=== PATIENT | male | born 1990 | race Caucasian/White ===

== ENCOUNTER 2018-04-06 10:48 | Outpatient (CLI) | payer MEDICAID | END 2018-04-06 10:49 | disposition critical access hospital (66) | LOC: EMS 10:48 | PROVIDERS: ATTEND Surgery | DX: R40.20 Unspecified coma (principal) | CPT/HCPCS: A0425; A0427 ==

== ENCOUNTER 2018-04-06 11:30 | Emergency (ER) | payer MEDICAID ==
--- NOTE | 2018-04-06 11:44 | ED Physician Documentation ---
History of Present Illness - Stated complaint Stated Complaint: DIABETIC PROB. - Chief complaint Chief Complaint: General - Additonal information Additional information: hx from pt 27 y/o male IDDM has insulin pump nl diet, no change in insulin FSBS was 151 at bedtime last night but this AM approx 1015 parents found him unrespnsive with sonorous respirations and his blood sugar was only 41 CPR was started EMS arrived and FSBS was 41 gave an amp of D50 and pt woke up and feels fine except his chest hurts from the compressions also travelled from [place] 2 m ago and his LLE has been a bit swollen ever since - Review of Systems Constitutional: denies: Fever, Chills Cardiac: reports: Chest pain / pressure (s/p CPR not before) Respiratory: denies: Dyspnea, Cough GI: denies: Abdominal Pain, Vomiting, Diarrhea Skin: denies: Rash, Lesions Endocrine: denies: Easy bruising / bleeding Immunocompromised: denies: Immunocompromised PD PAST MEDICAL HISTORY - Past Medical History Past Medical History: Yes Neuro: Peripheral neuropathy Endocrine/Autoimmune: Type 1 diabetes - Past Surgical History Past Surgical History: No - Present Medications Home Medications: Ambulatory Orders Medication Instructions Recorded Confirmed Citalopram [CeleXA] 10 mg PO ONCE 04/06/18 04/06/18 Gabapentin 600 mg PO 04/06/18 Ibuprofen [Motrin] 400 mg PO Q6H #30 tablet 04/06/18 Lidocaine Patch 5% [Lidoderm Patch] 1 patch TOP DAILY PRN #10 patch 04/06/18 - Allergies Allergies/Adverse Reactions: Allergies Allergy/AdvReac Type Severity Reaction Status Date / Time milk AdvReac Cramps Verified 04/06/18 11:36 - Social History Does the pt smoke?: Yes Smoking Status: Current every day smoker Does the pt drink ETOH?: Yes Substance Use and Type: Marijuana - Immunizations Immunizations are current?: Yes PD ED PE NORMAL - Vitals Vital signs reviewed: Yes - General General: Alert and oriented X 3 - HEENT HEENT: PERRL - Neck Neck: Supple, no meningeal sign - Cardiac Cardiac: RRR, Other (chest wall TTP no visible bruising) - Respiratory Respiratory: No respiratory distress, Clear bilaterally - Derm Derm: Normal color - Extremities Extremities: Other (slight edema to LLE non tender no redness or warmth, feet checked and no infection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 Results - Vitals Vitals: Vital Signs - 24 hr 04/06/18 04/06/18 11:31 15:31 Temperature 36.3 C L 36.6 C Heart Rate 118 H 101 H Respiratory 16 16 Rate Blood Pressure 151/109 H 110/104 H O2 Saturation 96 100 Oxygen O2 Source Room air - EKG (time done) 1216 Rate: Rate (enter#) (114) Rhythm: Sinus tachycardia Intervals: Normal MI QRS: Normal Ischemia: ST elevation c/w repol - Labs Labs: Laboratory Tests 04/06/18 04/06/18 04/06/18 12:09 12:09 13:38 WBC 6.8 RBC 5.63 Hgb 14.3 Hct 43.1 MCV 76.4 L MCH 25.5 L MCHC 33.3 RDW 15.5 H Plt Count 287 MPV 6.7 L Neut # (Auto) 5.6 Lymph # (Auto) 0.8 L [place] # (Auto) 0.4 Eos # (Auto) 0.0 Baso # (Auto) 0.0 Absolute Nucleated RBC 0.01 Nucleated RBC % 0.1 Sodium 134 L Potassium 4.5 Chloride 104 Carbon Dioxide 22 Anion Gap 8.0 BUN 22 H Creatinine 1.1 Estimated GFR (MDRD) 81 L Glucose 96 Calcium 8.7 Urine Color YELLOW Urine Clarity CLEAR Urine pH 6.0 Ur Specific [place] 1.025 Urine Protein 100 H Urine Glucose (UA) NEGATIVE Urine Ketones NEGATIVE Urine Occult Blood SMALL H Urine Nitrite NEGATIVE Urine Bilirubin NEGATIVE Urine Urobilinogen 0.2 (NORMAL) Ur Leukocyte Esterase NEGATIVE Urine RBC 0-5 Urine WBC 0-3 Ur Squamous Epith Cells RARE Squamous Urine Bacteria Rare Urine Casts 0-2 Hyaline Casts Ur Microscopic Review INDICATED Urine Culture Comments NOT INDICATED Urine Opiates Screen NEGATIVE Ur Oxycodone Screen NEGATIVE Urine Methadone Screen NEGATIVE Ur Propoxyphene Screen NEGATIVE Ur Barbiturates Screen NEGATIVE Ur Tricyclics Screen NEGATIVE Ur Phencyclidine Scrn NEGATIVE Ur Amphetamine Screen NEGATIVE U Methamphetamines Scrn NEGATIVE U Benzodiazepines Scrn NEGATIVE Urine Cocaine Screen NEGATIVE U Cannabinoids Screen NEGATIVE - Rads (name of study) duplex Radiology: See rad report (no DVT) PD MEDICAL DECISION MAKING - ED course ED course: prob low blood sugar resulting in AMS but consider another etiology causing AMS so he did not wake up and eat per usual better now after D50 favors first option but will check EKG CXR UA MUDDS and doppler LE to be sure no DVT (and thus doubt PE) all work up neg awake alert eating FSBS mid 70s, he turned his pump down pt and family ready to go he is experieneced with his diabetes, will adjust insulin, wants to go home and eat properly Departure - Departure Disposition: Home, Self Care Clinical Impression: Hypoglycemia Condition: Good Instructions: ED Contusion Chest Wall, ED Diabetes Hypoglycemia Insulin React Prescriptions: Ibuprofen [Motrin] 400 mg PO Q6H #30 tablet Lidocaine Patch 5% [Lidoderm Patch] 1 patch TOP DAILY PRN #10 patch PRN Reason: pain Comments: The blood work was fine. The EKG showed a normal rhythm The ultrasound did not show a blood clot The xray did not show any broken ribs or bruised lungs - an official radiology report is still pending and I will call you if the radiologist notes anything important for you to know about. Monitor your blood sugars carefully and adjust insulin as needed Motrin and lidocaine patches as needed for the pain in your chest wall
[2018-04-06 12:13] LABS: BASOPHILS % (AUTO) 0.2 %; EOSINOPHILS % (AUTO) 0.7 %; HGB - HEMOGLOBIN 14.3 g/dL (14.0-18.0); LYMPHOCYTES # (AUTO) 0.8 10^3/uL (1.5-3.5); LYMPHOCYTES % (AUTO) 11.2 %; MEAN CORPUSCULAR HEMOGLOBIN 25.5 pg (27.0-31.0); MEAN CORPUSCULAR HGB CONC 33.3 g/dL (32.0-36.0); MEAN CORPUSCULAR VOLUME 76.4 fL (80.0-94.0); MEAN PLATELET VOLUME 6.7 fL (7.4-11.4); MONOCYTES # (AUTO) 0.4 10^3/uL (0.0-1.0); MONOCYTES % (AUTO) 5.2 %; NEUTROPHILS # (AUTO) 5.6 10^3/uL (1.5-6.6); NEUTROPHILS % (AUTO) 82.7 %; PLT - PLATELET COUNT 287 10^3/uL (130-450); RED BLOOD COUNT 5.63 10^6/uL (4.70-6.10); RED CELL DISTRIBUTION WIDTH 15.5 % (12.0-15.0); WHITE BLOOD COUNT 6.8 x10^3/uL (4.8-10.8)
[2018-04-06 12:24] LABS: CALCIUM 8.7 mg/dL (8.5-10.3); CREATININE 1.1 mg/dL (0.6-1.2)
--- NOTE | 2018-04-06 13:35 | Ultrasound Report ---
Reason: LLE swelling after long distance travel Procedure Date: 04/06/2018 Accession Number: [id number] / [id number] Procedure: US - Duplex Ext Veins Left CPT Code: FULL RESULT: EXAM: LEFT LOWER EXTREMITY VENOUS ULTRASOUND EXAM DATE: 04/06/2018 12:36 PM. CLINICAL HISTORY: Left lower extremity swelling after long distance travel. COMPARISON: None. TECHNIQUE: Real-time sonographic vascular imaging was performed by the ending machine operator through the lower extremity utilizing both color-flow and Doppler spectral analysis. Multiple financial sales representative static images were saved for review. FINDINGS: Common Femoral Vein (CFV): Normal. CFV-GSV Junction: Normal. Profunda Femoral Vein (PFV): Normal. Femoral Vein (FV) Prox: Normal. Femoral Vein (FV) Mid: Normal. Femoral Vein (FV) Dist: Normal. Popliteal Vein: Normal. Posterior Tibial Veins: Normal. Peroneal Veins: Normal. Other: Morphologically normal-appearing lymph nodes are seen in the left groin. IMPRESSION: No evidence for deep venous thrombosis. RADIA
[2018-04-06 13:46] LABS: MUDS CUTOFF CONCENTRATIONS CUTOFF CONC BELOW:
[2018-04-06 13:48] LABS: BILIRUBIN,URINE NEGATIVE (NEGATIVE); GLUCOSE, URINE (UA) NEGATIVE (NEGATIVE); KETONES,URINE (UA) NEGATIVE (NEGATIVE); LEUKOCYTE ESTERASE, URINE NEGATIVE (NEGATIVE); NITRITE,URINE NEGATIVE (NEGATIVE); OCCULT BLOOD,URINE SMALL (NEGATIVE); PROTEIN,URINE 100 mg/dL (NEGATIVE); UROBILINOGEN,URINE 0.2 (NORMAL) E.U./dL (NORMAL)
[2018-04-06 13:51] LABS: CLARITY,URINE CLEAR (CLEAR)
[2018-04-06 13:58] LABS: BACTERIA,URINE Rare /HPF (None Seen); RBC,URINE 0-5 /HPF (0-5); SQUAMOUS EPITHELIAL CELL,UR RARE Squamous (<= Few)
[2018-04-06 14:00] LABS: AMPHETAMINE SCREEN,URINE NEGATIVE (NEGATIVE); BENZODIAZEPINES SCREEN, URINE NEGATIVE (NEGATIVE); COCAINE SCREEN URINE NEGATIVE (NEGATIVE); METHADONE SCREEN, URINE NEGATIVE (NEGATIVE); METHAMPHETAMINES SCREEN, URINE NEGATIVE (NEGATIVE); OPIATE SCREEN, URINE NEGATIVE (NEGATIVE); OXYCODONE SCREEN, URINE NEGATIVE (NEGATIVE); PROPOXYPHENE SCREEN, URINE NEGATIVE (NEGATIVE); TRICYCLIC ANTIDEPRESSANT,URINE NEGATIVE (NEGATIVE)
[2018-04-06] MEDS ORDERED: LIDOCAINE PATCH 5% TOP STA (14:57)
[2018-04-06] MEDS ORDERED: IBUPROFEN 400 MG TABLET PO STA (14:57)
[2018-04-06 15:32] VITALS: BP 110/104
--- NOTE | 2018-04-06 16:37 | XRAY Report ---
Reason: cp after CPR Procedure Date: 04/06/2018 Accession Number: [id number] / [id number] Procedure: XR - Chest 2 View X-Ray CPT Code: 14069 FULL RESULT: EXAM: CHEST RADIOGRAPHY EXAM DATE: 04/06/2018 12:01 PM. CLINICAL HISTORY: Cp after CPR. COMPARISON: None available. TECHNIQUE: 2 views. FINDINGS: Heart size is normal. No consolidation, pleural effusion, or pneumothorax. No definite displaced rib fracture visualized. IMPRESSION: Normal 2-view chest radiography. RADIA
== END 2018-04-06 16:44 | disposition home or self-care (01) ==
LOC: EDUNIT# → ED 11:30
DX: E10.649 Type 1 diabetes mellitus with hypoglycemia without coma (principal); E10.42 Type 1 diabetes mellitus with diabetic polyneuropathy; R00.0 Tachycardia, unspecified; F17.200 Nicotine dependence, unspecified, uncomplicated; Z96.41 Presence of insulin pump (external) (internal)
CPT/HCPCS: 36415; 71046; 80048; 80306; 81001; 85025; 93005; 93971; 99283; A9270; 81003; 87086

== ENCOUNTER 2018-10-20 08:31 | Outpatient (CLI) | payer MEDICAID ==
[2018-10-20 17:41] LABS: MEAN CORPUSCULAR HEMOGLOBIN 24.5 pg (27.0-31.0); MEAN CORPUSCULAR HGB CONC 30.4 g/dL (32.0-36.0); MEAN CORPUSCULAR VOLUME 80.6 fL (80.0-94.0); RED BLOOD COUNT 5.3 10^6/uL (4.70-6.10); RED CELL DISTRIBUTION WIDTH 14.8 % (12.0-15.0); WHITE BLOOD COUNT 3.8 x10^3/uL (4.8-10.8)
[2018-10-20 18:31] LABS: ALBUMIN 2.1 g/dL (3.2-5.5); ALBUMIN/GLOBULIN RATIO 0.5 (1.0-2.2); ALKALINE PHOSPHATASE 190 IU/L (42-121); ALT ALANINE AMINOTRANSFERASE 59 IU/L (10-60); AST ASPARTATE AMINOTRANSFERASE 41 IU/L (10-42); BILIRUBIN,TOTAL 0.6 mg/dL (0.2-1.0); BUN - BLOOD UREA NITROGEN 18 mg/dL (6-20); CALCIUM 8.3 mg/dL (8.5-10.3); CARBON DIOXIDE - CO2 25 mmol/L (21-32); CHLORIDE 101 mmol/L (101-111); CHOL/HDL RATIO 5.3 (<5.0); CHOLESTEROL 149 mg/dL; CREATININE 1.2 mg/dL (0.6-1.2); GFR - MDRD 73 (>89); GLUCOSE 229 mg/dL (70-100); HDL CHOLESTEROL 28 mg/dL; LDL CHOLESTEROL,CALCULATED 79 mg/dL; LDL/HDL RATIO 2.8 (<3.6); SODIUM 134 mmol/L (135-145); TOTAL PROTEIN 6.6 g/dL (6.7-8.2); VLDL CHOLESTEROL 42 mg/dL
[2018-10-20 18:34] LABS: HB2 TOTAL 14.2 g/dL; HEMOGLOBIN A1C 1.48 g/dL; HEMOGLOBIN A1C % 11.7 % (4.6-6.2)
[2018-10-20 19:31] LABS: CREATININE,URINE 104.4 mg/dL; MICROALBUM/CREATININE RATIO,UR 4195.4 ug/mg (<30.0)
== END 2018-10-20 08:32 | disposition home or self-care (01) ==
LOC: LAB.S 08:31
PROVIDERS: ATTEND Internal Medicine
DX: E10.9 Type 1 diabetes mellitus without complications (principal); R60.9 Edema, unspecified
CPT/HCPCS: 36415; 80053; 80061; 82043; 82570; 83036; 83721; 84443; 85027

== ENCOUNTER 2018-12-11 15:21 | Observation (INO) | payer MEDICAID ==
[2018-12-11] MEDS ORDERED: SODIUM CHLORIDE 0.9% 1,000 ML IV ONE ×3 (15:59→18:04)
[2018-12-11 16:23] LABS: BASOPHILS % (AUTO) 0.2 %; EOSINOPHILS # (AUTO) 0.1 10^3/uL (0.0-0.7); EOSINOPHILS % (AUTO) 0.4 %; HGB - HEMOGLOBIN 13.9 g/dL (14.0-18.0); LYMPHOCYTES # (AUTO) 0.9 10^3/uL (1.5-3.5); LYMPHOCYTES % (AUTO) 6.7 %; MEAN CORPUSCULAR HGB CONC 31.7 g/dL (32.0-36.0); MEAN CORPUSCULAR VOLUME 78.6 fL (80.0-94.0); MONOCYTES # (AUTO) 0.5 10^3/uL (0.0-1.0); MONOCYTES % (AUTO) 3.7 %; NEUTROPHILS # (AUTO) 11.6 10^3/uL (1.5-6.6); NEUTROPHILS % (AUTO) 88.6 %; PLT - PLATELET COUNT 199 10^3/uL (130-450); RED BLOOD COUNT 5.57 10^6/uL (4.70-6.10); RED CELL DISTRIBUTION WIDTH 16.2 % (12.0-15.0); WHITE BLOOD COUNT 13.1 x10^3/uL (4.8-10.8)
[2018-12-11 16:32] LABS: KETONES, SERUM (ACETEST) NEGATIVE (NEGATIVE)
[2018-12-11 16:33] LABS: VBG BASE EXCESS -7.1 mmol/L (-2 - +2); VBG PCO2 44.1 mmHg (41-51); VBG PH 7.267 (7.31-7.41); VBG PO2 26.8 mmHg (25-47)
[2018-12-11 16:36] LABS: ALBUMIN 2.6 g/dL (3.2-5.5); ALBUMIN/GLOBULIN RATIO 0.5 (1.0-2.2); ALKALINE PHOSPHATASE 176 IU/L (42-121); ALT ALANINE AMINOTRANSFERASE 23 IU/L (10-60); AST ASPARTATE AMINOTRANSFERASE 23 IU/L (10-42); BILIRUBIN,TOTAL 0.4 mg/dL (0.2-1.0); BUN - BLOOD UREA NITROGEN 22 mg/dL (6-20); CALCIUM 8.5 mg/dL (8.5-10.3); CARBON DIOXIDE - CO2 21 mmol/L (21-32); CHLORIDE 100 mmol/L (101-111); CREATININE 1.2 mg/dL (0.6-1.2); GFR - MDRD 73 (>89); GLUCOSE 229 mg/dL (70-100); LIPASE 23 U/L (22-51); SODIUM 130 mmol/L (135-145); TOTAL PROTEIN 7.9 g/dL (6.7-8.2)
[2018-12-11] MEDS ORDERED: MORPHINE 2 MG/ML CARPUJECT IVP STA (18:04)
--- NOTE | 2018-12-11 18:05 | ED Physician Documentation ---
History of Present Illness - Stated complaint Stated Complaint: Tremors - Chief complaint Chief Complaint: Neuro - History obtained from History obtained from: Patient, Family - History of Present Illness Timing: Today Pain level max: 6 Pain level now: 5 Improved by: nothing Worsened by: nothing - Additonal information Additional information: 27-year-old male with type 1 diabetes. On insulin pump. Blood sugars are 150- 200 at home. Has been feeling weak and shaky for the past several days. Worsened today. Normally has a tremor but worse today. Nausea but no vomiting. Review of Systems Ten Systems: 10 systems reviewed and negative Constitutional: denies: Fever, Chills Respiratory: denies: Cough GI: denies: Nausea, Vomiting, Diarrhea Skin: denies: Rash Musculoskeletal: denies: Neck pain, Back pain Neurologic: denies: Headache PD PAST MEDICAL HISTORY - Past Medical History Past Medical History: Yes Neuro: Peripheral neuropathy Endocrine/Autoimmune: Type 1 diabetes - Past Surgical History Past Surgical History: Yes HEENT: Myringotomy (tubes) - Present Medications Home Medications: Ambulatory Orders Medication Instructions Recorded Confirmed Citalopram [CeleXA] 10 mg PO ONCE 04/06/18 04/06/18 Gabapentin 600 mg PO 04/06/18 Ibuprofen [Motrin] 400 mg PO Q6H #30 tablet 04/06/18 Lidocaine Patch 5% [Lidoderm Patch] 1 patch TOP DAILY PRN #10 patch 04/06/18 Insulin Pump Controller [Omnipod 1 each MC 12/11/18 Dash Pdm Kit] Loperamide HCl [Loperamide] 12/11/18 - Allergies Allergies/Adverse Reactions: Allergies Allergy/AdvReac Type Severity Reaction Status Date / Time milk AdvReac Cramps Verified 04/06/18 11:36 - Social History Does the pt smoke?: Yes Smoking Status: Current every day smoker Does the pt drink ETOH?: Yes - Immunizations Immunizations are current?: Yes PD ED PE NORMAL - Vitals Vital signs reviewed: Yes - General General: Alert and oriented X 3, No acute distress, Other (thin male) - HEENT HEENT: Other (dry lips ) - Neck Neck: Supple, no meningeal sign - Cardiac Cardiac: Strong equal pulses, Other (tachycardic) - Respiratory Respiratory: No respiratory distress, Clear bilaterally - Abdomen Abdomen: Soft, Non tender, Non distended - Back Back: No CVA TTP, No spinal TTP - Derm Derm: Warm and dry - Extremities Extremities: No edema - Neuro Neuro: Alert and oriented X 3 - Psych Psych: Normal mood, Normal affect Results - Vitals Vitals: Vital Signs - 24 hr 12/11/18 12/11/18 12/11/18 15:42 17:35 18:00 Temperature 37.3 C Heart Rate 147 H 124 H 127 H Respiratory 20 19 17 Rate Blood Pressure 144/91 H 125/94 H 139/102 H O2 Saturation 97 98 98 12/11/18 12/11/18 12/11/18 18:30 19:00 19:30 Temperature Heart Rate 121 H 121 H 119 H Respiratory 18 20 18 Rate Blood Pressure 132/90 H 142/95 H 129/85 H O2 Saturation 97 97 97 12/11/18 12/11/18 12/11/18 20:00 20:30 21:00 Temperature Heart Rate 121 H 121 H 120 H Respiratory 19 13 23 Rate Blood Pressure 113/89 H 129/99 H 118/84 H O2 Saturation 98 100 99 12/11/18 22:15 Temperature Heart Rate 118 H Respiratory 13 Rate Blood Pressure 130/91 H O2 Saturation 99 Oxygen O2 Source Room air - Labs Labs: Laboratory Tests 12/11/18 12/11/18 12/11/18 16:11 16:16 16:16 WBC 13.1 H RBC 5.57 Hgb 13.9 L Hct 43.8 MCV 78.6 L MCH 25.0 L MCHC 31.7 L RDW 16.2 H Plt Count 199 MPV 9.0 Neut # (Auto) 11.6 H Lymph # (Auto) 0.9 L [place] # (Auto) 0.5 Eos # (Auto) 0.1 Baso # (Auto) 0.0 Absolute Nucleated RBC 0.00 Nucleated RBC % 0.0 VBG pH VBG pCO2 VBG pO2 VBG HCO3 VBG Total CO2 VBG O2 Saturation VBG Base Excess Sodium 130 L Potassium 5.2 H Chloride 100 L Carbon Dioxide 21 Anion Gap 9.0 BUN 22 H Creatinine 1.2 Estimated GFR (MDRD) 73 L Glucose 229 H POC Whole Bld Glucose 205 H Calcium 8.5 Phosphorus Magnesium Total Bilirubin 0.4 AST 23 ALT 23 Alkaline Phosphatase 176 H Troponin I High Sens Total Protein 7.9 Albumin 2.6 L Globulin 5.3 H Albumin/Globulin Ratio 0.5 L Lipase 23 Urine Color Urine Clarity Urine pH Ur Specific [place] Urine Protein Urine Glucose (UA) Urine Ketones Urine Occult Blood Urine Nitrite Urine Bilirubin Urine Urobilinogen Ur Leukocyte Esterase Urine RBC Urine WBC Ur Squamous Epith Cells Urine Bacteria Urine Casts Ur Microscopic Review Urine Culture Comments Urine Opiates Screen Ur Oxycodone Screen Urine Methadone Screen Ur Propoxyphene Screen Ur Barbiturates Screen Ur Tricyclics Screen Ur Phencyclidine Scrn Ur Amphetamine Screen U Methamphetamines Scrn U Benzodiazepines Scrn Urine Cocaine Screen U Cannabinoids Screen Serum Ketones NEGATIVE 12/11/18 12/11/18 12/11/18 16:16 17:33 20:04 WBC RBC Hgb Hct MCV MCH MCHC RDW Plt Count MPV Neut # (Auto) Lymph # (Auto) [place] # (Auto) Eos # (Auto) Baso # (Auto) Absolute Nucleated RBC Nucleated RBC % VBG pH 7.267 L VBG pCO2 44.1 VBG pO2 26.8 VBG HCO3 19.7 L VBG Total CO2 21.0 L VBG O2 Saturation 54.2 L VBG Base Excess -7.1 L Sodium Potassium Chloride Carbon Dioxide Anion Gap BUN Creatinine Estimated GFR (MDRD) Glucose POC Whole Bld Glucose 197 H Calcium Phosphorus Magnesium Total Bilirubin AST ALT Alkaline Phosphatase Troponin I High Sens Total Protein Albumin Globulin Albumin/Globulin Ratio Lipase Urine Color YELLOW Urine Clarity CLEAR Urine pH 6.0 Ur Specific [place] 1.020 Urine Protein >=300 H Urine Glucose (UA) 250 H Urine Ketones NEGATIVE Urine Occult Blood MODERATE H Urine Nitrite NEGATIVE Urine Bilirubin NEGATIVE Urine Urobilinogen 0.2 (NORMAL) Ur Leukocyte Esterase NEGATIVE Urine RBC 6-10 H Urine WBC 0-3 Ur Squamous Epith Cells NONE SEEN Urine Bacteria None Seen Urine Casts 11-25 Fine Granular Ur Microscopic Review INDICATED Urine Culture Comments NOT INDICATED Urine Opiates Screen POSITIVE H Ur Oxycodone Screen NEGATIVE Urine Methadone Screen NEGATIVE Ur Propoxyphene Screen NEGATIVE Ur Barbiturates Screen NEGATIVE Ur Tricyclics Screen NEGATIVE Ur Phencyclidine Scrn NEGATIVE Ur Amphetamine Screen NEGATIVE U Methamphetamines Scrn NEGATIVE U Benzodiazepines Scrn NEGATIVE Urine Cocaine Screen NEGATIVE U Cannabinoids Screen NEGATIVE Serum Ketones 12/11/18 12/11/18 12/11/18 20:10 20:10 20:10 WBC RBC Hgb Hct MCV MCH MCHC RDW Plt Count MPV Neut # (Auto) Lymph # (Auto) [place] # (Auto) Eos # (Auto) Baso # (Auto) Absolute Nucleated RBC Nucleated RBC % VBG pH VBG pCO2 VBG pO2 VBG HCO3 VBG Total CO2 VBG O2 Saturation VBG Base Excess Sodium 131 L Potassium 5.0 Chloride 105 Carbon Dioxide 20 L Anion Gap 6.0 BUN 21 H Creatinine 1.1 Estimated GFR (MDRD) 81 L Glucose 151 H POC Whole Bld Glucose Calcium 7.5 L Phosphorus 2.8 Magnesium 1.2 L Total Bilirubin AST ALT Alkaline Phosphatase Troponin I High Sens 4.1 Total Protein Albumin Globulin Albumin/Globulin Ratio Lipase Urine Color Urine Clarity Urine pH Ur Specific [place] Urine Protein Urine Glucose (UA) Urine Ketones Urine Occult Blood Urine Nitrite Urine Bilirubin Urine Urobilinogen Ur Leukocyte Esterase Urine RBC Urine WBC Ur Squamous Epith Cells Urine Bacteria Urine Casts Ur Microscopic Review Urine Culture Comments Urine Opiates Screen Ur Oxycodone Screen Urine Methadone Screen Ur Propoxyphene Screen Ur Barbiturates Screen Ur Tricyclics Screen Ur Phencyclidine Scrn Ur Amphetamine Screen U Methamphetamines Scrn U Benzodiazepines Scrn Urine Cocaine Screen U Cannabinoids Screen Serum Ketones 12/11/18 20:44 WBC RBC Hgb Hct MCV MCH MCHC RDW Plt Count MPV Neut # (Auto) Lymph # (Auto) [place] # (Auto) Eos # (Auto) Baso # (Auto) Absolute Nucleated RBC Nucleated RBC % VBG pH 7.216 L VBG pCO2 48.4 VBG pO2 30.9 VBG HCO3 19.2 L VBG Total CO2 20.7 L VBG O2 Saturation 60.5 VBG Base Excess -8.6 L Sodium Potassium Chloride Carbon Dioxide Anion Gap BUN Creatinine Estimated GFR (MDRD) Glucose POC Whole Bld Glucose Calcium Phosphorus Magnesium Total Bilirubin AST ALT Alkaline Phosphatase Troponin I High Sens Total Protein Albumin Globulin Albumin/Globulin Ratio Lipase Urine Color Urine Clarity Urine pH Ur Specific [place] Urine Protein Urine Glucose (UA) Urine Ketones Urine Occult Blood Urine Nitrite Urine Bilirubin Urine Urobilinogen Ur Leukocyte Esterase Urine RBC Urine WBC Ur Squamous Epith Cells Urine Bacteria Urine Casts Ur Microscopic Review Urine Culture Comments Urine Opiates Screen Ur Oxycodone Screen Urine Methadone Screen Ur Propoxyphene Screen Ur Barbiturates Screen Ur Tricyclics Screen Ur Phencyclidine Scrn Ur Amphetamine Screen U Methamphetamines Scrn U Benzodiazepines Scrn Urine Cocaine Screen U Cannabinoids Screen Serum Ketones - Rads (name of study) abd/pelvis CT Radiology: Prelim report reviewed, EMP read contemporaneously, See rad report (1. There are several small scattered low attenuating lesions in the liver a few of which appear to represent cysts others of which are indeterminate. In addition there is a rim-enhancing lesion in the lateral segment left lobe of the liver likely representing an hemangioma and a possible small hemangioma in the right lobe. 2. The spleen is lobular in appearance. 3. Hypertrophy of the functioning right kidney. Atrophic, fibrous, nonfunctioning left kidney. 4. Multiple small to borderline-enlarged lymph nodes in the retroperitoneum, pelvis, and inguinal regions. 5. No definite evidence for appendicitis. 6. Small amount of free fluid in the pelvis. 7. Patchy subtle infiltrates in the inferior sulci of both lungs. Discussion: As noted above a few of the lesions in the liver may represent cysts yet other lesions are indeterminate. The subtle rim-enhancing lesions in the liver thought to represent hemangiomas, however, liver abscesses are not excluded by this study. Furthermore, as noted above there are prominent lymph nodes in the abdomen and pelvis suggestive of a systemic process, inflammation (infection) versus possible neoplasm. ) CXR Radiology: Prelim report reviewed, EMP read contemporaneously, See rad report (Normal single view chest.) PD MEDICAL DECISION MAKING - ED course Complexity details: reviewed results, re-evaluated patient, considered differential, d/w patient, d/w family, d/w mining consultant ED course: 27-year-old male presents to the emergency department with dehydration, acidosis. He was given IV fluids, on repeat lab testing his acidosis had worsened. He was having right upper quadrant abdominal pain, CT scan shows multiple findings, unclear if any of these are the reason for his pain. He was also given a chest x-ray which does not show any acute abnormalities. Discussed the case with Dr. Miller, hospitalist who accepts. This document was made in part using voice recognition software. While efforts are made to proofread this document, sound alike and grammatical errors may occur. Departure - Departure Disposition: ED Place in Observation Clinical Impression: Dehydration, Metabolic acidosis, Sinus tachycardia Pneumonia Qualifiers: Pneumonia type: due to unspecified organism Laterality: bilateral Lung location: lower lobe of lung Qualified Code(s): J18.1 - Lobar pneumonia, unspecified organism Condition: Stable
[2018-12-11 20:15] LABS: MUDS CUTOFF CONCENTRATIONS CUTOFF CONC BELOW:
[2018-12-11 20:20] LABS: BILIRUBIN,URINE NEGATIVE (NEGATIVE); GLUCOSE, URINE (UA) 250 mg/dL (NEGATIVE); KETONES,URINE (UA) NEGATIVE (NEGATIVE); LEUKOCYTE ESTERASE, URINE NEGATIVE (NEGATIVE); NITRITE,URINE NEGATIVE (NEGATIVE); OCCULT BLOOD,URINE MODERATE (NEGATIVE); PROTEIN,URINE >=300 mg/dL (NEGATIVE); UROBILINOGEN,URINE 0.2 (NORMAL) E.U./dL (NORMAL)
[2018-12-11 20:21] LABS: CLARITY,URINE CLEAR (CLEAR)
[2018-12-11 20:24] LABS: CALCIUM 7.5 mg/dL (8.5-10.3); CREATININE 1.1 mg/dL (0.6-1.2)
[2018-12-11 20:41] LABS: AMPHETAMINE SCREEN,URINE NEGATIVE (NEGATIVE); BACTERIA,URINE None Seen /HPF (None Seen); BENZODIAZEPINES SCREEN, URINE NEGATIVE (NEGATIVE); CASTS, URINE 11-25 Fine Granular /LPF; COCAINE SCREEN URINE NEGATIVE (NEGATIVE); METHADONE SCREEN, URINE NEGATIVE (NEGATIVE); METHAMPHETAMINES SCREEN, URINE NEGATIVE (NEGATIVE); OPIATE SCREEN, URINE POSITIVE (NEGATIVE); OXYCODONE SCREEN, URINE NEGATIVE (NEGATIVE); PROPOXYPHENE SCREEN, URINE NEGATIVE (NEGATIVE); SQUAMOUS EPITHELIAL CELL,UR NONE SEEN (<= Few); TRICYCLIC ANTIDEPRESSANT,URINE NEGATIVE (NEGATIVE)
[2018-12-11 20:48] LABS: VBG BASE EXCESS -8.6 mmol/L (-2 - +2); VBG PCO2 48.4 mmHg (41-51); VBG PH 7.216 (7.31-7.41); VBG PO2 30.9 mmHg (25-47); VBG TOTAL CO2 20.7 mmol/L (24-29)
[2018-12-11] MEDS ORDERED: IOVERSOL 320 100 ML VIAL IVP ONE ×2 (21:11→21:21)
--- NOTE | 2018-12-11 21:58 | CT Report ---
Reason: R sided abd pain Procedure Date: 12/11/2018 Accession Number: [id number] / [id number] Procedure: CT - Abdomen/Pelvis W CPT Code: FULL RESULT: EXAM: CT ABDOMEN AND PELVIS EXAM DATE: 12/11/2018 09:29 PM. CLINICAL HISTORY: R sided abd pain. COMPARISONS: None. TECHNIQUE: Routine helical CT imaging was performed through the abdomen and pelvis. IV contrast: OPTI 320 100ML. Enteric contrast: No. Reconstructions: Coronal and sagittal. In accordance with CT protocol optimization, one or more of the following dose reduction techniques were utilized for this exam: automated exposure control, adjustment of mA and/or KV based on patient size, or use of iterative reconstructive technique. FINDINGS: Lung Bases: There are patchy interstitial changes at both lung bases mostly in the inferior sulci. Liver: The liver is normal in size. There is a cyst in the dome the liver in the right lobe. This has a diameter measuring 10 mm and there is slight heterogeneity of the parenchyma peripheral to this cyst. Also in the lateral segment of the left lobe there is an ill-defined low attenuating lesion possibly representing a cyst measuring 9 mm. There is a subtle peripherally enhancing lesion in the lateral aspect of the left lobe measuring 18 mm noted on series 3 image 16. This likely represents an hepatic hemangioma. There is a vague area of decreased attenuation in the inferior aspect of the right lobe of the liver measuring 8 mm. This may represent a small cyst and a smaller low attenuating lesion also in the inferior right lobe measuring 8 mm. There is a area of decreased attenuation is subtle peripheral enhancement in the posterior aspect of the right lobe of the liver measuring 17 mm x 16 mm. There is subtle circumferential enhancement. This may represent a small hemangioma. There is a small low attenuating lesion also no the dome of the liver and the left lobe measuring 8 mm. Gallbladder/Bile Ducts: Unremarkable. Spleen: The spleen is lobular. Pancreas: Normal. Adrenal Glands: Normal. Kidneys: There is an atrophic fibers, non-functioning left kidney and an hypertrophic right kidney. There is normal nephrogram. The kidney measures 12.1 sono meters by 7.3 cm x 5 cm. No hydronephrosis. Peritoneal Cavity/Bowel: There are several small to borderline sized lymph nodes in the periaortic and pericaval location these lymph nodes measure up to 15 mm in short axis diameter. The stomach and small bowel are unremarkable. The appendix is partially visualized. There is air within portion of the lumen of the appendix. There is slight enhancement of the wall yet there are no appendiceal inflammatory changes. No evidence for extraluminal fluid collections. No inflammatory changes in the region of the cecum. There are no inflammatory changes of the colon. Pelvic Organs: The prostate and seminal vesicles are unremarkable. There are no bladder calculi. There is a small amount of free fluid in the pelvis. There are a few small borderline sized lymph nodes in the inguinal regions. There are borderline sized lymph nodes along both the external iliac chains. Vasculature: No aneurysms or other significant abnormality. Bones: No significant abnormality. Other: None. IMPRESSION: 1. There are several small scattered low attenuating lesions in the liver a few of which appear to represent cysts others of which are indeterminate. In addition there is a rim-enhancing lesion in the lateral segment left lobe of the liver likely representing an hemangioma and a possible small hemangioma in the right lobe. 2. The spleen is lobular in appearance. 3. Hypertrophy of the functioning right kidney. Atrophic, fibrous, nonfunctioning left kidney. 4. Multiple small to borderline-enlarged lymph nodes in the retroperitoneum, pelvis, and inguinal regions. 5. No definite evidence for appendicitis. 6. Small amount of free fluid in the pelvis. 7. Patchy subtle infiltrates in the inferior sulci of both lungs. Discussion: As noted above a few of the lesions in the liver may represent cysts yet other lesions are indeterminate. The subtle rim-enhancing lesions in the liver thought to represent hemangiomas, however, liver abscesses are not excluded by this study. Furthermore, as noted above there are prominent lymph nodes in the abdomen and pelvis suggestive of a systemic process, inflammation (infection) versus possible neoplasm. RADIA
--- NOTE | 2018-12-11 22:40 | XRAY Report ---
Reason: cough Procedure Date: 12/11/2018 Accession Number: [id number] / [id number] Procedure: XR - Chest 1 View X-Ray CPT Code: 66558 FULL RESULT: EXAM: CHEST RADIOGRAPHY EXAM DATE: 12/11/2018 10:32 PM. CLINICAL HISTORY: Cough. COMPARISON: CHEST 2 VIEW 04/06/2018 11:50 AM. TECHNIQUE: 1 view. FINDINGS: Lungs/Pleura: No focal opacities evident. No pleural effusion. No pneumothorax. Mediastinum: Within exam limitations, the cardiomediastinal contour is normal. Other: None. IMPRESSION: Normal single view chest. RADIA
[2018-12-11] MEDS ORDERED: ACETAMINOPHEN 325 MG TABLET PO PRN (22:42)
[2018-12-11] MEDS ORDERED: ONDANSETRON 4 MG/2 ML VIAL IVP PRN (22:42)
[2018-12-11] MEDS ORDERED: SODIUM CHLORIDE FLUSH 0.9% 10 ML SYRINGE IVP PRN (22:42)
[2018-12-11] MEDS ORDERED: LACTATED RINGERS 1,000 ML IV SCH (23:00)
[2018-12-11 23:06] LABS: MAGNESIUM 1.2 mg/dL (1.7-2.8); PHOSPHORUS 2.8 mg/dL (2.5-4.6)
[2018-12-11] MEDS ORDERED: MAGNESIUM SULFATE 2 GRAM 2 GM/50 ML BAG IV ONE (23:17)
--- NOTE | 2018-12-11 23:21 | HISTORY & PHYSICAL EXAMINATION ---
Chief Complaint - Chief Complaint Chief Complaint: Abdominal pain History of Present Illness - Admitted From Admitted From:: Home - History Obtained From Records Reviewed: Yes History obtained from: Patient, Mother, ER Physician - History of Present Illness HPI Comment/Other: This is a 27 year old male with a past medical history significant for type 1 diabetes, depression, and tremor who presents from home because of abdominal pain that began yesterday and continued into today. He reports the pain is predominantly located below his lower right rib and that it feels like sharp chest pain. He does not have nausea or vomiting. He does reportedly have IBS and had a significant amount of diarrhea this past week that resolved 2-3 days ago. He takes Imodium daily for his diarrhea. He reports his blood sugars have been well controlled with his insulin pump. His blood glucose is usually in the 100's and today was no different. He reports a good appetite. Does endorse subjective fevers and chills. Reports no weight loss and that he has actually been gaining a few pounds. He denies dyspnea, cough, dysuria, hematuria. He reports that he is always tachycardic and his heart rate is usually in the 120's-130's. In the ER, he was afebrile, slightly hypertensive with systolics in the 140's and tachycardic with heart rates in the 140's. Labs were significant for mild leukocytosis with a left shift, sodium of 130, blood glucose of 197 and negative serum ketones. VBG initially showed a pH of 7.267. He was given two litres of saline. Repeat labs showed a slight improvement in his hyponatremia, decrease in bicarbonate. Repeat VBG showed a decline in his pH to 7.216. He also remained tachycardic despite the fluids. Medicine was asked to admit the patient because of his declining pH. History - Past Medical History Neuro: reports: Tremors Endocrine/Autoimmune: reports: Type 1 diabetes : reports: Other (Atrophic left kidney) Derm: reports: Herpes zoster MRSA Hx?: No - Past Surgical History HEENT: reports: Myringotomy (tubes) - Family & Social History Family History Comment/Other: His mother has type 2 diabetes. His grandfather also had a tremor. Living arrangement: At home Social History Notes: He previously lived in [place] but now lives on [facility]. He does not work at this time. He smokes half a pack of cigarettes. - Substance History Use: Uses substance without health or social issues: Tobacco Meds/Allgy - Home Medications Home Medications: Ambulatory Orders Medication Instructions Recorded Confirmed Citalopram [CeleXA] 10 mg PO ONCE 04/06/18 04/06/18 Gabapentin 600 mg PO 04/06/18 Ibuprofen [Motrin] 400 mg PO Q6H #30 tablet 04/06/18 Lidocaine Patch 5% [Lidoderm Patch] 1 patch TOP DAILY PRN #10 patch 04/06/18 Insulin Pump Controller [Omnipod 1 each MC 12/11/18 Dash Pdm Kit] Loperamide HCl [Loperamide] 12/11/18 - Allergies Allergies/Adverse Reactions: Allergies Allergy/AdvReac Type Severity Reaction Status Date / Time milk AdvReac Cramps Verified 04/06/18 11:36 Review of Systems - Constitutional Constitutional: reports: Fever, Chills. denies: Fatigue, Poor appetite, Weight loss - Cardiovascular Cariovascular: reports: Irregular heart rate, Chest pain, Edema. denies: Palpitations, Exertional dyspnea, Decr. exercise tolerance - Respiratory Respiratory: denies: Cough, SOB at rest, SOB with exertion - Gastrointestinal Gastrointestinal: reports: Abdominal pain, Diarrhea. denies: Constipation, Bloody stools, Nausea, Vomiting - Genitourinary Genitourinary: denies: Dysuria, Frequency, Hematuria - Integumentary Integumentary: denies: Rash - Neurological Neurological: reports: Other (Tremor). denies: General weakness, Focal weakness - Endocrine Endocrine: denies: Polyuria - All Other Systems All Other Systems: reports: Reviewed and negative Prior Level of Functionality: Independent with ADL's. Exam - Vital Signs Reviewed Vital Signs: Yes Vital Signs: Vital Signs x48h Temp Pulse Resp BP Pulse Ox 12/11/18 22:43 37.6 C H 117 H 15 136/100 H 98 12/11/18 22:15 118 H 13 130/91 H 99 12/11/18 21:00 120 H 23 118/84 H 99 12/11/18 20:30 121 H 13 129/99 H 100 12/11/18 20:00 121 H 19 113/89 H 98 12/11/18 19:30 119 H 18 129/85 H 97 12/11/18 19:00 121 H 20 142/95 H 97 12/11/18 18:30 121 H 18 132/90 H 97 12/11/18 18:00 127 H 17 139/102 H 98 12/11/18 17:35 124 H 19 125/94 H 98 12/11/18 15:42 37.3 C 147 H 20 144/91 H 97 - Physical Exam General Appearance: positive: No acute distress, Alert Eyes Bilateral: positive: Normal inspection, Conjunctivae nml ENT: positive: ENT inspection nml, No signs of dehydration. negative: Dry mucous membranes Neck: positive: Nml inspection Respiratory: positive: No respiratory distress, Breath sounds nml. negative: Wheezes, Rales, Rhonchi Cardiovascular: positive: No murmur, Tachycardia. negative: Irregularly irregular, Systolic murmur, Diastolic murmur Abdomen: positive: Nml bowel sounds, No distention, Tenderness (Diffuse tenderness). negative: Guarding, Rebound Extremities: positive: Non-tender, Pedal edema (+1 pitting edema in bilateral lo wer extremites) Neurologic/Psychiatric: positive: Oriented x3, Motor nml, Other (No focal motor deficits). negative: Disoriented to person, Disoriented to place, Disoriented to time, Slurred/abnml speech Conclusion/Plan - Problem List (1) Normal anion gap metabolic acidosis Conclusion/Plan: I suspect that his acidosis may be secondary to the significant diarrhea he has been having. His bicarbonate likely decreased on repeat labs secondary to the chloride load he received with the IV hydration. Do not suspect RTA at this time. His anion gap is normal. Will observe him overnight given the decrease in his bicarbonate and pH on VBG. - IV hydration with LR - Check urine anion gap - Check BMP in AM (2) Hyponatremia Conclusion/Plan: Sodium was initially 130 on arrival to the ER which increased to 131 with the IV hydration he received. Despite his peripheral edema, he does not appear hypervolemic and may be a little dry given the diarrhea he has been having. Suspect this may be hypovolemic hyponatremia. - IV hydration - Check BMP in AM (3) Tachycardia Conclusion/Plan: He is tachycardic in the 120's which he reports is his baseline. Reports sharp chest/abdominal pain near his right lower ange. - IV hydration - Obtain EKG - Check troponin (4) Type 1 diabetes mellitus Conclusion/Plan: He was diagnosed 8 years ago when he was found to have DKA. No further episodes of DKA since then and reports blood glucose have been controlled with an insulin pump which he has had for one year. His labs are not suggestive of DKA. - Continue insulin pump while hospitalized overnight - CC diet - Check A1c (5) Liver cyst Conclusion/Plan: He has a few cysts evident on the CT of the abdomen/pelvis. The largest is 18mm which the radiologist believes is likely a hepatic hemangioma. - He will likely require an MRI of the abdomen which can be completed on an outpatient basis (6) Atrophy of left kidney Conclusion/Plan: Evident on CT of the abdomen/pelvis. Renal function is stable with a creatinine of 1.2. Patient was informed of this finding which was new to him. He does have proteinuria on his UA as well as peripheral edema - Monitor renal function - Check random urine protein and creatinine to rule out nephrotic syndrome (7) Lymphadenopathy, abdominal Conclusion/Plan: Evident on CT of the abdomen/pelvis. Several small to borderline lymph nodes in the periaortic and pericaval locations. Discussed these finidings with the patient and mother. Endorses fevers and chills but no weight loss. - Check uric acid and LDH - Will require outpatient follow up and further workup to ensure that this is not a lymphoma - Lab Results Lab results reviewed: Yes Ulysses Bones: 12/11/18 16:16 12/11/18 20:10 - Diagnostic Imaging Results Diagnostic Imaging Results: positive: Final report reviewed Core Measures - Anticipated LOS I expect patient to be DC'd or transferred within 96 hours.: Yes - Issues Hospital Issues and Management Plan: Worsening metabolic acidosis working further management and workup. - DVT/VTE - Prophylaxis VTE/DVT Device ordered at admit?: Yes VTE/DVT Prophylaxis med ordered at admit?: Yes
[2018-12-11] MEDS ORDERED: cefTRIAXone 1 GM VIAL IVP STA (23:42)
[2018-12-11] MEDS ORDERED: AZITHROMYCIN INJ 500 MG in SODIUM CHLORIDE 0.9% 250 ML IV STA (23:43)
[2018-12-11] MEDS ORDERED: MAGNESIUM OXIDE 400 MG TABLET PO SCH (23:45)
[2018-12-12] MEDS ORDERED: WATER FOR INJECTION,STERILE 0 ML ONE (00:38)
[2018-12-12] MEDS ORDERED: IBUPROFEN 400 MG TABLET PO PRN (00:57)
[2018-12-12] MEDS: SODIUM CHLORIDE FLUSH 0.9% 10 ML SYRINGE IVP SCH ×2 (01:04→08:55)
[2018-12-12 05:52] LABS: BASOPHILS % (AUTO) 0.3 %; EOSINOPHILS % (AUTO) 0.4 %; HGB - HEMOGLOBIN 10.3 g/dL (14.0-18.0); LYMPHOCYTES # (AUTO) 1.5 10^3/uL (1.5-3.5); LYMPHOCYTES % (AUTO) 22.3 %; MEAN CORPUSCULAR HEMOGLOBIN 24.8 pg (27.0-31.0); MEAN CORPUSCULAR HGB CONC 31.4 g/dL (32.0-36.0); MEAN PLATELET VOLUME 9.7 fL (7.4-11.4); MONOCYTES # (AUTO) 0.5 10^3/uL (0.0-1.0); NEUTROPHILS # (AUTO) 4.6 10^3/uL (1.5-6.6); NEUTROPHILS % (AUTO) 69.7 %; PLT - PLATELET COUNT 164 10^3/uL (130-450); RED BLOOD COUNT 4.15 10^6/uL (4.70-6.10); RED CELL DISTRIBUTION WIDTH 16.3 % (12.0-15.0); WHITE BLOOD COUNT 6.7 x10^3/uL (4.8-10.8)
[2018-12-12 06:06] LABS: CALCIUM 7.3 mg/dL (8.5-10.3); CREATININE 1.1 mg/dL (0.6-1.2); PHOSPHORUS 3.2 mg/dL (2.5-4.6); URIC ACID 5.6 mg/dL (2.6-7.2)
[2018-12-12 06:10] LABS: HB2 TOTAL 10.7 g/dL; HEMOGLOBIN A1C 0.85 g/dL; HEMOGLOBIN A1C % 9.4 % (4.6-6.2)
[2018-12-12 06:32] LABS: CREATININE,URINE 85.6 mg/dL
[2018-12-12] MEDS ORDERED: ENOXAPARIN 40 MG/0.4 ML SYRINGE SUBQ SCH (09:00)
[2018-12-12 09:08] VITALS: BP 161/106
--- NOTE | 2018-12-12 10:16 | Discharge Plan ---
Discharge Plan Problem Reviewed?: Yes Disposition: Home, Self Care Condition: Good Diet: Diabetic Activity Restrictions: Activity as Tolerated Shower Restrictions: No Health Concerns: Elevated hemoglobin A1C of 9.4% (should be about 6%), which means your average blood sugars are 223 Sinus tachycardia Low extremity foot swelling Non-functioning left kidney Right kidney hypertrophy (indicates possible urinary retention) Liver lesions (appear cyst like, with other lesions) Multiple small, enlarged lymph nodes in the abdominal pelvic region Plan of Treatment: A outpatient diabetic nurse referral has been made to ensure better blood sugar control You also qualify for pulmonary rehab to help you stop smoking You will need close follow up for your medical care since your high hemoglobin A1C is putting you at 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 Call for help. Follow-up with: Gilberto Coronado MD [Primary Care Provider] -
--- NOTE | 2018-12-12 10:25 | DISCHARGE SUMMARY ---
Discharge Summary Admit Date: 12/11/18 Discharge Date: 12/12/18 Discharging Provider: CICI Chance Primary Care Provider: Gilberto Coronado Code Status: Attempt Resuscitation Condition at Discharge: Good Discharge Disposition: 01 Home, Self Care - DIAGNOSES Admission Diagnoses: Normal anion gap metabolic acidosis Hyponatremia Tachycardia Type 1 diabetes mellitus Liver cyst Atrophy of left kidney Lymphadenopathy, abdominal Medical noncompliance Tobacco dependence Discharge Diagnoses with Status of Each Condition: Normal anion gap metabolic acidosis- resolved Hyponatremia-resolved Tachycardia-chronic, stable Type 1 diabetes mellitus- chronic, diagnosed at age 19 years, uncontrolled, HgA1C is 9.4%, DM nurse educator referral made Liver cyst- new finding, patient informed, will need follow up Atrophy of left kidney- new finding, kidney labs were stable, patient has been informed Lymphadenopathy, abdominal- new finding, will need follow up Medical noncompliance- chronic, ongoing Tobacco dependence- chronic, patient not interested in quitting, pulmonary rehab referral made for a resource to the patient, refused nicotine patches Dehydration- resolved Edema of both lower extremities- chronic, stable Depression, major, recurrent- chronic, recommend outpatient follow up Nephrotic syndrome- chronic, stable Hypertrophy of kidney- new on this admission, likely due to suspected neurogenic bladder - HPI History of Present Illness: HPI per Dr. Paula: This is a 27 year old male with a past medical history significant for type 1 diabetes, depression, and tremor who presents from home because of abdominal pain that began yesterday and continued into today. He reports the pain is predominantly located below his lower right rib and that it feels like sharp chest pain. He does not have nausea or vomiting. He does reportedly have IBS and had a significant amount of diarrhea this past week that resolved 2-3 days ago. He takes Imodium daily for his diarrhea. He reports his blood sugars have been well controlled with his insulin pump. His blood glucose is usually in the 100's and today was no different. He reports a good appetite. Does endorse subjective fevers and chills. Reports no weight loss and that he has actually been gaining a few pounds. He denies dyspnea, cough, dysuria, hematuria. He reports that he is always tachycardic and his heart rate is usually in the 120's-130's. In the ER, he was afebrile, slightly hypertensive with systolics in the 140's and tachycardic with heart rates in the 140's. Labs were significant for mild leukocytosis with a left shift, sodium of 130, blood glucose of 197 and negative serum ketones. VBG initially showed a pH of 7.267. He was given two litres of saline. Repeat labs showed a slight improvement in his hyponatremia, decrease in bicarbonate. Repeat VBG showed a decline in his pH to 7.216. He also remained tachycardic despite the fluids. Medicine was asked to admit the patient because of his declining pH. - HOSPITAL COURSE Hospital Course: Normal anion gap metabolic acidosis- suspected that the acidosis may have been secondary to the significant diarrhea he has been having prior to admission. His bicarbonate likely decreased on repeat labs secondary to the chloride load he received with the IV hydration. His anion gap remained normal. The patient was observed overnight and was very anxious to return home by the AM. He was given IV hydration with LR, routine labs, which improved and discharge home with family. His abdominal pain had also subsided. Hyponatremia- Sodium was initially 130 on arrival to the ER which increased to 131 with the IV hydration he received. Despite his peripheral edema, he did not appear hypervolemic and may was thought to be dehydrated due to his reported diarrhea, suspect hypovolemic hyponatremia. Tachycardia- The patient explained this to be baseline tachycardia of which he has seen a stallion manager for in the past. He is not on any home medications for rate control at home. His telemetry conclusion did not reveal any other ectopy or abnormal cardiac rhythms. Type 1 diabetes mellitus- He was diagnosed 8 years ago when he was found to have DKA. No further episodes of DKA since then and reports blood glucose have been controlled with an insulin pump which he has had for one year. His labs are not suggestive of DKA. A hemoglobin A1C was 9.4%, with an average blood sugar of ~223. Patient denied any diabetes education or diabetic supplies to be sent to the pharmacy. Liver cyst- He has a few cysts evident on the CT of the abdomen/pelvis. The largest is 18mm which the radiologist believes is likely a hepatic hemangioma. The patient was informed of this and given more teaching on liver lesions prior to discharge. He will likely require an MRI of the abdomen which can be completed on an outpatient basis. Atrophy of left kidney- Evident on CT of the abdomen/pelvis. Renal function is stable with a creatinine of 1.2. Patient was informed of this finding which was new to him. He does have proteinuria on his UA as well as peripheral edema. Lymphadenopathy, abdominal- Evident on CT of the abdomen/pelvis. Several small to borderline lymph nodes in the periaortic and pericaval locations. Discussed these finidings with the patient and mother. Endorses fevers and chills but no weight loss. Will require outpatient follow up and further workup to ensure that this is not a lymphoma. Disposition: The patient was medically stable and discharged home with family. Referrals for pulmonary rehab and [facility] diabetes nurse were put in prior to discharge since these were medically indicated. - ALLERGIES Allergies/Adverse Reactions: Allergies Allergy/AdvReac Type Severity Reaction Status Date / Time milk AdvReac Cramps Verified 04/06/18 11:36 - MEDICATIONS Home Medications: Ambulatory Orders Medication Instructions Recorded Confirmed Citalopram [CeleXA] 10 mg PO DAILY 04/06/18 12/12/18 Insulin Pump Controller [Omnipod 1 each MC 12/11/18 Dash Pdm Kit] Loperamide HCl [Loperamide] 2 mg PO Q3H PRN 12/11/18 12/12/18 Insulin Aspart (Vial) [NovoLOG 24 units SUBQ DAILY 12/12/18 12/12/18 (VIAL FOR ED USE)] - PHYSICAL EXAM AT DISCHARGE General Appearance: positive: No acute distress, Alert Eyes Bilateral: positive: PERRL ENT: positive: Pharynx nml, No signs of dehydration Neck: positive: Thyroid nml, No JVD, Trachea midline Respiratory: positive: Chest non-tender, No respiratory distress, Breath sounds nml, Other (scattered crackles) Cardiovascular: positive: No gallop, Irregularly irregular, Systolic murmur, Decreased pulse(s) Peripheral Pulses: positive: 1+ Abdomen: positive: Non-tender, Nml bowel sounds, No distention Back: positive: Nml inspection Skin: positive: No rash, Warm, Dry Extremities: positive: Non-tender, Full ROM, Nml appearance, Pedal edema (chronic BLE edema, thickened, discolored skin) Neurologic/Psychiatric: positive: Oriented x3, CN's nml (2-12), Motor nml, Sensory loss, Depressed mood/affect (very little eye contact) Reflexes: Bicep (R): 3+, Bicep (L): 3+ - LABS Result Diagrams: 12/12/18 05:16 12/12/18 05:16 - DIAGNOSTIC IMAGING Diagnostic Imaging Results: Final report reviewed Diagnostic Imaging Results Comments: EXAM: CT ABDOMEN AND PELVIS EXAM DATE: 12/11/2018 09:29 PM IMPRESSION: 1. There are several small scattered low attenuating lesions in the liver a few of which appear to represent cysts others of which are indeterminate. In addition there is a rim-enhancing lesion in the lateral segment left lobe of the liver likely representing an hemangioma and a possible small hemangioma in the right lobe. 2. The spleen is lobular in appearance. 3. Hypertrophy of the functioning right kidney. Atrophic, fibrous, nonfunctioning left kidney. 4. Multiple small to borderline-enlarged lymph nodes in the retroperitoneum, pelvis, and inguinal regions. 5. No definite evidence for appendicitis. 6. Small amount of free fluid in the pelvis. 7. Patchy subtle infiltrates in the inferior sulci of both lungs. Discussion: As noted above a few of the lesions in the liver may represent cysts yet other lesions are indeterminate. The subtle rim-enhancing lesions in the liver thought to represent hemangiomas, however, liver abscesses are not excluded by this study. Furthermore, as noted above there are prominent lymph nodes in the abdomen and pelvis suggestive of a systemic process, inflammation (infection) versus possible neoplasm. EXAM: CHEST RADIOGRAPHY EXAM DATE: 12/11/2018 10:32 PM IMPRESSION: Normal single view chest. - FOLLOW UP Follow Up: Disposition: Home, Self Care Health Concerns: Elevated hemoglobin A1C of 9.4% (should be about 6%), which means your average blood sugars are 223 Sinus tachycardia Low extremity foot swelling Non-functioning left kidney Right kidney hypertrophy (indicates possible urinary retention) Liver lesions (appear cyst like, with other lesions) Multiple small, enlarged lymph nodes in the abdominal pelvic region Plan of Treatment: A outpatient diabetic nurse referral has been made to ensure better blood sugar control You also qualify for pulmonary rehab to help you stop smoking You will need close follow up for your medical care since your high hemoglobin A1C is putting you at risk of infection and penitentiary complications Care Goals: Prevent hospital stays Keep good control of blood sugars Ensure good health of your overall health Prevent urinary retention Determine the cause of the CT findings of enlarged lymph nodes and liver cysts Assessment: You are medically stable and can go home today Please see Dr. 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
== END 2018-12-12 11:05 | disposition home or self-care (01) ==
LOC: ED 15:21 → MS2 22:42
PROVIDERS: ADMIT Internal Medicine; ATTEND Nurse Practitioner
DX: E10.10 Type 1 diabetes mellitus with ketoacidosis without coma (principal); E86.0 Dehydration; K76.89 Other specified diseases of liver; E87.1 Hypo-osmolality and hyponatremia; N26.1 Atrophy of kidney (terminal); N28.81 Hypertrophy of kidney; N03.9 Chronic nephritic syndrome with unspecified morphologic changes; R59.0 Localized enlarged lymph nodes; R60.0 Localized edema; R07.9 Chest pain, unspecified; R25.1 Tremor, unspecified; R00.0 Tachycardia, unspecified; R91.8 Other nonspecific abnormal finding of lung field; F33.9 Major depressive disorder, recurrent, unspecified; E10.42 Type 1 diabetes mellitus with diabetic polyneuropathy; F17.210 Nicotine dependence, cigarettes, uncomplicated; Z79.4 Long term (current) use of insulin; Z96.41 Presence of insulin pump (external) (internal); Z87.898 Personal history of other specified conditions; Z91.19 Patient's noncompliance with other medical treatment and regimen
CPT/HCPCS: 36415; 71045; 74177; 80048; 80053; 80306; 81001; 82009; 82436; 82570; 82803; 83036; 83615; 83690; 83735; 84100; 84133; 84156; 84300; 84484; 84550; 85025; 93005; 96361; 96365; 96366; 96367; 96368; 96375; 99285; A9270; G0378; J7120; Q9967; 81003; 87086

== ENCOUNTER 2019-02-13 13:55 | Outpatient (CLI) | payer MEDICAID ==
--- NOTE | 2019-02-13 15:50 | Ultrasound Report ---
Reason: CKD NEPHROTIC RANGE PROTEINURIA,PE 1 DM WITH NEPHR Procedure Date: 02/13/2019 Accession Number: [id number] / [id number] Procedure: US - Retroperitoneal CPT Code: Final Report FULL RESULT: EXAM: RENAL ULTRASOUND EXAM DATE: 02/13/2019 03:18 PM. CLINICAL HISTORY: Chronic kidney disease. Nephrotic range proteinuria. Type 1 diabetes mellitus with nephropathy. COMPARISON: ABDOMEN/PELVIS W/ 12/11/2018 9:17 PM. TECHNIQUE: Real-time scanning was performed with static images obtained. FINDINGS: Right Kidney: 12.5 x 5.9 x 6.6 cm. Echogenic echotexture with no stones or contour-deforming masses. Mild pelvocaliectasis. Left Kidney: Nonvisualized. Bladder: Right ureteral jets seen. The prevoid bladder volume was 141 cc. The postvoid bladder volume was 5 cc. Other: None. IMPRESSION: 1. Nonvisualized left kidney. 2. Echogenic right renal parenchyma compatible with medical renal disease, with mild pelvocaliectasis noted, although there is a normal right ureteral jet. RADIA
== END 2019-02-13 13:56 | disposition home or self-care (01) ==
LOC: DI 13:55
PROVIDERS: ATTEND Internal Medicine Nephrology
DX: E10.21 Type 1 diabetes mellitus with diabetic nephropathy (principal)
CPT/HCPCS: 76770

== ENCOUNTER 2019-03-02 10:39 | Outpatient (CLI) | payer MEDICAID ==
[2019-03-02 17:11] LABS: BASOPHILS % (AUTO) 0.7 %; EOSINOPHILS # (AUTO) 0.2 10^3/uL (0.0-0.7); EOSINOPHILS % (AUTO) 4.6 %; HGB - HEMOGLOBIN 13.1 g/dL (14.0-18.0); LYMPHOCYTES # (AUTO) 1.3 10^3/uL (1.5-3.5); LYMPHOCYTES % (AUTO) 32.1 %; MEAN CORPUSCULAR HEMOGLOBIN 25.5 pg (27.0-31.0); MEAN CORPUSCULAR HGB CONC 31.5 g/dL (32.0-36.0); MEAN CORPUSCULAR VOLUME 80.9 fL (80.0-94.0); MEAN PLATELET VOLUME 10.2 fL (7.4-11.4); MONOCYTES # (AUTO) 0.3 10^3/uL (0.0-1.0); MONOCYTES % (AUTO) 6.6 %; NEUTROPHILS # (AUTO) 2.3 10^3/uL (1.5-6.6); NEUTROPHILS % (AUTO) 55.8 %; PLT - PLATELET COUNT 192 10^3/uL (130-450); RED BLOOD COUNT 5.14 10^6/uL (4.70-6.10); WHITE BLOOD COUNT 4.1 x10^3/uL (4.8-10.8)
[2019-03-02 18:03] LABS: % IRON SATURATION 25 % (20-50); ALBUMIN 2.3 g/dL (3.2-5.5); ALKALINE PHOSPHATASE 162 IU/L (42-121); ALT ALANINE AMINOTRANSFERASE 29 IU/L (10-60); AST ASPARTATE AMINOTRANSFERASE 24 IU/L (10-42); BILIRUBIN,TOTAL 0.4 mg/dL (0.2-1.0); IRON 61 ug/dL (45-182); MAGNESIUM 1.8 mg/dL (1.7-2.8); TOTAL IRON BINDING CAPACITY 242 ug/dL (250-450); TOTAL PROTEIN 6.9 g/dL (6.7-8.2); TRANSFERRIN 173 mg/dL (180-329)
[2019-03-02 18:14] LABS: THYROID STIMULATING HORMONE 2.48 uIU/mL (0.34-5.60)
[2019-03-02 18:19] LABS: FERRITIN 160.7 ng/mL (23.9-336.2)
[2019-03-02 19:06] LABS: BILIRUBIN,DIRECT < 0.1 mg/dL (0.1-0.5)
[2019-03-03 12:36] LABS: HEPATITIS B SURFACE ANTIGEN NON-REACTIVE (NON-REACTIVE)
[2019-03-05 16:06] LABS: HIV AG/AB 4TH GEN REPEATEDLY REACTIVE (NON-REACTIVE)
[2019-03-06 12:56] LABS: ANA SCREEN NEGATIVE (NEGATIVE)
== END 2019-03-02 10:40 | disposition home or self-care (01) ==
LOC: LAB.S 10:39
PROVIDERS: ATTEND Internal Medicine Nephrology
DX: E11.22 Type 2 diabetes mellitus with diabetic chronic kidney disease (principal); N18.9 Chronic kidney disease, unspecified; R80.1 Persistent proteinuria, unspecified; E11.65 Type 2 diabetes mellitus with hyperglycemia
CPT/HCPCS: 36415; 80076; 82306; 82728; 83540; 83735; 83970; 84443; 84466; 85025; 86038; 86704; 86707; 86803; 87340; 87389; 87522

== ENCOUNTER 2019-04-30 11:13 | Outpatient (CLI) | payer MEDICAID ==
[2019-04-30 18:05] LABS: ALBUMIN 2.1 g/dL (3.2-5.5); CALCIUM 8.3 mg/dL (8.5-10.3); CREATININE 1.6 mg/dL (0.6-1.2); PHOSPHORUS 4.4 mg/dL (2.5-4.6)
[2019-04-30 18:43] LABS: PROTEIN/CREATININE RATIO,URINE 2.6 (<=0.2)
[2019-05-03 14:20] LABS: HIV AG/AB 4TH GEN REPEATEDLY REACTIVE (NON-REACTIVE)
== END 2019-04-30 11:14 | disposition home or self-care (01) ==
LOC: LAB.S 11:13
PROVIDERS: ATTEND Internal Medicine Nephrology
DX: N18.9 Chronic kidney disease, unspecified (principal); R80.1 Persistent proteinuria, unspecified
CPT/HCPCS: 36415; 80069; 82570; 84156; 87389

== ENCOUNTER 2019-12-05 12:52 | Outpatient (CLI) | payer MEDICAID ==
[2019-12-05 13:20] LABS: BASOPHILS % (AUTO) 0.6 %; EOSINOPHILS # (AUTO) 0.1 10^3/uL (0.0-0.7); HGB - HEMOGLOBIN 11.2 g/dL (14.0-18.0); LYMPHOCYTES # (AUTO) 1.6 10^3/uL (1.5-3.5); LYMPHOCYTES % (AUTO) 29.8 %; MEAN CORPUSCULAR HEMOGLOBIN 26.2 pg (27.0-31.0); MEAN PLATELET VOLUME 8.9 fL (7.4-11.4); MONOCYTES # (AUTO) 0.4 10^3/uL (0.0-1.0); MONOCYTES % (AUTO) 7.7 %; NEUTROPHILS # (AUTO) 3.2 10^3/uL (1.5-6.6); NEUTROPHILS % (AUTO) 59.5 %; PLT - PLATELET COUNT 216 10^3/uL (130-450); RED BLOOD COUNT 4.27 10^6/uL (4.70-6.10); WHITE BLOOD COUNT 5.4 x10^3/uL (4.8-10.8)
[2019-12-05 13:25] LABS: BILIRUBIN,URINE NEGATIVE (NEGATIVE); GLUCOSE, URINE (UA) >=1000 mg/dL (NEGATIVE); KETONES,URINE (UA) NEGATIVE (NEGATIVE); LEUKOCYTE ESTERASE, URINE NEGATIVE (NEGATIVE); NITRITE,URINE NEGATIVE (NEGATIVE); OCCULT BLOOD,URINE SMALL (NEGATIVE); PH,URINE 6.5 PH (5.0-7.5); PROTEIN,URINE >=300 mg/dL (NEGATIVE); UROBILINOGEN,URINE 0.2 (NORMAL) E.U./dL (NORMAL)
[2019-12-05 13:26] LABS: CLARITY,URINE CLEAR (CLEAR)
[2019-12-05 13:35] LABS: BACTERIA,URINE Rare /HPF (None Seen); RBC,URINE 0-5 /HPF (0-5); SQUAMOUS EPITHELIAL CELL,UR NONE SEEN (<= Few)
[2019-12-05 13:39] LABS: ALBUMIN 1.6 g/dL (3.2-5.5); ALBUMIN/GLOBULIN RATIO 0.4 (1.0-2.2); BILIRUBIN,TOTAL 0.2 mg/dL (0.2-1.0); CALCIUM 7.9 mg/dL (8.5-10.3); CREATININE 2.3 mg/dL (0.6-1.2)
[2019-12-05 20:38] LABS: HEMOGLOBIN A1c% 10.2 % (4.27-6.07)
[2019-12-06 12:37] LABS: HEPATITIS C ANTIBODY NON-REACTIVE (NON-REACTIVE)
== END 2019-12-05 12:53 | disposition home or self-care (01) ==
LOC: LAB 12:52
PROVIDERS: ATTEND Internal Medicine
DX: B20 Human immunodeficiency virus [HIV] disease (principal)
CPT/HCPCS: 36415; 80053; 81001; 81599; 83036; 84156; 85025; 86592; 86803; 87086; 87536

== ENCOUNTER 2020-01-17 07:40 | Outpatient (CLI) | payer MEDICAID ==
[2020-01-17 15:31] LABS: HGB - HEMOGLOBIN 11.4 g/dL (14.0-18.0); MEAN CORPUSCULAR HEMOGLOBIN 25.4 pg (27.0-31.0); MEAN CORPUSCULAR HGB CONC 31.2 g/dL (32.0-36.0); MEAN CORPUSCULAR VOLUME 81.3 fL (80.0-94.0); MEAN PLATELET VOLUME 10.2 fL (7.4-11.4); RED BLOOD COUNT 4.49 10^6/uL (4.70-6.10); RED CELL DISTRIBUTION WIDTH 16.3 % (12.0-15.0); WHITE BLOOD COUNT 5.2 x10^3/uL (4.8-10.8)
[2020-01-17 16:37] LABS: CREATININE,URINE 34.2 mg/dL; PROTEIN/CREATININE RATIO,URINE 14.9 (<=0.2)
== END 2020-01-17 07:41 | disposition home or self-care (01) ==
LOC: LAB.S 07:40
PROVIDERS: ATTEND Internal Medicine Nephrology
DX: D70.9 Neutropenia, unspecified (principal); D63.1 Anemia in chronic kidney disease; R80.9 Proteinuria, unspecified
CPT/HCPCS: 36415; 82570; 84156; 85027

== ENCOUNTER 2020-02-28 08:00 | Outpatient (CLI) | payer MEDICAID ==
[2020-02-28 13:59] LABS: ALBUMIN 1.3 g/dL (3.2-5.5); ALBUMIN/GLOBULIN RATIO 0.3 (1.0-2.2); BILIRUBIN,TOTAL 0.3 mg/dL (0.2-1.0); CALCIUM 7.6 mg/dL (8.5-10.3); CREATININE 2.8 mg/dL (0.6-1.2); TOTAL PROTEIN 5.4 g/dL (6.7-8.2)
== END 2020-02-28 23:59 | disposition home or self-care (01) ==
LOC: LAB.S 08:00
PROVIDERS: ATTEND Physician Assistant
DX: R11.2 Nausea with vomiting, unspecified (principal)
CPT/HCPCS: 36415; 80053; 83690

== ENCOUNTER 2020-04-07 13:44 | Outpatient (CLI) | payer MEDICAID ==
[2020-04-07 20:43] LABS: BASOPHILS # (AUTO) 0.1 10^3/uL (0.0-0.1); BASOPHILS % (AUTO) 0.3 %; EOSINOPHILS % (AUTO) 0.2 %; HGB - HEMOGLOBIN 11.1 g/dL (14.0-18.0); LYMPHOCYTES # (AUTO) 1.5 10^3/uL (1.5-3.5); LYMPHOCYTES % (AUTO) 9.8 %; MEAN CORPUSCULAR HEMOGLOBIN 24.9 pg (27.0-31.0); MEAN CORPUSCULAR HGB CONC 30.9 g/dL (32.0-36.0); MEAN CORPUSCULAR VOLUME 80.7 fL (80.0-94.0); MEAN PLATELET VOLUME 9.8 fL (7.4-11.4); MONOCYTES # (AUTO) 0.6 10^3/uL (0.0-1.0); NEUTROPHILS # (AUTO) 13.2 10^3/uL (1.5-6.6); PLT - PLATELET COUNT 200 10^3/uL (130-450); RED BLOOD COUNT 4.45 10^6/uL (4.70-6.10); RED CELL DISTRIBUTION WIDTH 15.9 % (12.0-15.0); WHITE BLOOD COUNT 15.5 x10^3/uL (4.8-10.8)
[2020-04-07 20:53] LABS: ALBUMIN 1.2 g/dL (3.2-5.5); ALBUMIN/GLOBULIN RATIO 0.3 (1.0-2.2); ALKALINE PHOSPHATASE 157 IU/L (42-121); ALT ALANINE AMINOTRANSFERASE 15 IU/L (10-60); AST ASPARTATE AMINOTRANSFERASE 12 IU/L (10-42); BILIRUBIN,TOTAL < 0.2 mg/dL (0.2-1.0); BUN - BLOOD UREA NITROGEN 45 mg/dL (6-20); CALCIUM 8.1 mg/dL (8.5-10.3); CARBON DIOXIDE - CO2 15 mmol/L (21-32); CHLORIDE 103 mmol/L (101-111); CREATININE 3.5 mg/dL (0.6-1.2); GLUCOSE 241 mg/dL (70-100); SODIUM 130 mmol/L (135-145); TOTAL PROTEIN 5.4 g/dL (6.7-8.2)
== END 2020-04-07 13:45 | disposition home or self-care (01) ==
LOC: LAB.S 13:44
PROVIDERS: ATTEND Internal Medicine
DX: I10 Essential (primary) hypertension (principal); B20 Human immunodeficiency virus [HIV] disease
CPT/HCPCS: 36415; 80053; 81599; 85025; 87536

== ENCOUNTER 2020-04-15 13:25 | Outpatient (CLI) | payer MEDICAID ==
--- NOTE | 2020-04-15 14:56 | XRAY Report ---
PROCEDURE: Hip w/Pelvis 2-3V LT INDICATIONS: FALL,LEFT SIDE PAIN TECHNIQUE: AP pelvis with lateral view(s) of the left hip(s). COMPARISON: None. FINDINGS: Bones: No fractures or dislocations. Pelvic ring appears intact. No suspicious bony lesions. Soft tissues: The visualized bowel gas pattern is normal. No suspicious soft tissue calcifications. IMPRESSION: No acute fracture. No osseous lesion. If symptoms and/or clinical suspicion for patholog y continue, further assessment with repeat plain films, or advanced imaging (e.g., CT, MRI, or bone s can) is recommended for further assessment. Reviewed by: Harry Pena MD on 04/15/2020 2:55 PM PST Approved by: Harry Pena MD on 04/15/2020 2:55 PM PST Station ID: [id number]
--- NOTE | 2020-04-15 14:59 | XRAY Report ---
PROCEDURE: Knee 3 View LT INDICATIONS: FALL, LEFT SIDED PAIN TECHNIQUE: 3 views of the left knee(s) were acquired. COMPARISON: None. FINDINGS: Bones: No fractures or dislocations. No suspicious bony lesions. Soft tissues: No joint effusion. No suspicious soft tissue calcifications. IMPRESSION: No acute fracture. No osseous lesion. If symptoms and/or clinical suspicion for patholog y continue, further assessment with repeat plain films, or advanced imaging (e.g., CT, MRI, or bone s can) is recommended for further assessment. Reviewed by: Harry Pena MD on 04/15/2020 2:58 PM PST Approved by: Harry Pena MD on 04/15/2020 2:58 PM PST Station ID: [id number]
== END 2020-04-15 13:26 | disposition home or self-care (01) ==
LOC: DI.S 13:25
PROVIDERS: ATTEND Physician Assistant
DX: M25.552 Pain in left hip (principal); M25.562 Pain in left knee; W19.XXXA Unspecified fall, initial encounter

== ENCOUNTER 2020-04-23 16:27 | Emergency (ER) | payer MEDICAID ==
[2020-04-23 17:02] VITALS: BP 111/68
== END 2020-04-23 19:30 | disposition left against medical advice (07) ==
LOC: ED 16:27
DX: Z53.21 Procedure and treatment not carried out due to patient leaving prior to being seen by health care provider (principal)

== ENCOUNTER 2020-04-24 13:49 | Outpatient (CLI) | payer MEDICAID | END 2020-04-24 13:50 | disposition critical access hospital (66) | LOC: EMS 13:49 | PROVIDERS: ATTEND Surgery | DX: M25.562 Pain in left knee (principal); M25.462 Effusion, left knee | CPT/HCPCS: A0425; A0429; A0999 ==

== ENCOUNTER 2020-04-24 14:31 | Emergency (ER) | payer MEDICAID ==
[2020-04-24 15:41] LABS: BASOPHILS # (AUTO) 0.1 10^3/uL (0.0-0.1); BASOPHILS % (AUTO) 0.6 %; EOSINOPHILS # (AUTO) 0.1 10^3/uL (0.0-0.7); EOSINOPHILS % (AUTO) 0.5 %; HGB - HEMOGLOBIN 9.8 g/dL (14.0-18.0); LYMPHOCYTES # (AUTO) 0.4 10^3/uL (1.5-3.5); LYMPHOCYTES % (AUTO) 1.8 %; MEAN CORPUSCULAR HEMOGLOBIN 25.3 pg (27.0-31.0); MEAN CORPUSCULAR HGB CONC 31.4 g/dL (32.0-36.0); MEAN CORPUSCULAR VOLUME 80.4 fL (80.0-94.0); MEAN PLATELET VOLUME 9.8 fL (7.4-11.4); MONOCYTES # (AUTO) 0.5 10^3/uL (0.0-1.0); MONOCYTES % (AUTO) 2.2 %; PLT - PLATELET COUNT 172 10^3/uL (130-450); RED BLOOD COUNT 3.88 10^6/uL (4.70-6.10); RED CELL DISTRIBUTION WIDTH 16.4 % (12.0-15.0); WHITE BLOOD COUNT 22.6 x10^3/uL (4.8-10.8)
[2020-04-24] MEDS ORDERED: traMADol 50 MG TABLET PO STA (15:51)
[2020-04-24 15:58] LABS: ALBUMIN 1.1 g/dL (3.2-5.5); ALBUMIN/GLOBULIN RATIO 0.3 (1.0-2.2); BILIRUBIN,TOTAL 0.4 mg/dL (0.2-1.0); CALCIUM 8.2 mg/dL (8.5-10.3); CREATININE 5.6 mg/dL (0.6-1.2)
--- NOTE | 2020-04-24 15:59 | ED Physician Documentation ---
PD HPI LOWER EXT INJURY - Stated complaint Stated Complaint: KNEE PX - Chief complaint Chief Complaint: Ext Problem - History obtained from History obtained from: Patient - History of Present Illness PD HPI LOW EXT INJURY LOCATION: Left, Knee Type of injury: Fall, Twist Where injury occurred: Home Timing - onset: How many weeks ago (3) Timing - duration: Weeks (3) Timing - details: Abrupt onset, Still present Improved by: Rest, Immobilization Worsened by: Moving, Palpating Associated symptoms: Swelling. No: Weakness, Numbness, Tingling Contributing factors: Other (anasarca from nephrotic syndrome and type one diabetes and HIV). No: Anticoagulated Similar symptoms before: Diagnosis (knee sprain) Recently seen: Clinic - Additional information Additional information: 29-year-old male with a history of type 1 diabetes, nephrotic syndrome and HIV was knocked over by his dog 3 weeks ago and has injured his left knee. He has had pain in the knee since then and now is having trouble walking. He states that anytime he tries to bear weight he has intolerable pain eventually. At rest his pain is resolved. He has been in to see his doctor at the clinic and x-ray was obtained without evidence of fracture the patient was placed into a knee immobilizer and fell in the waiting room of the doctor's office after attempting to leave. 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 Review of Systems Constitutional: denies: Fever Eyes: denies: Decreased vision Ears: denies: Ear pain Nose: denies: Congestion Throat: denies: Sore throat Cardiac: denies: Chest pain / pressure, Palpitations Respiratory: reports: Dyspnea. denies: Cough GI: denies: Abdominal Pain, Nausea, Vomiting, Diarrhea : denies: Dysuria, Frequency Skin: denies: Rash Musculoskeletal: reports: Extremity pain, Joint pain, Extremity swelling, Joint swelling. denies: Neck pain, Back pain Neurologic: denies: Generalized weakness, Focal weakness, Numbness PD PAST MEDICAL HISTORY - Past Medical History Past Medical History: Yes Cardiovascular: Hypertension Neuro: Tremors Endocrine/Autoimmune: Type 1 diabetes : Renal insuffiency Psych: Depression Derm: Herpes zoster Other Past Medical History: Stage 2 renal failure, HIV type I. - Past Surgical History Past Surgical History: Yes HEENT: Myringotomy (tubes) - Present Medications Home Medications: Ambulatory Orders Medication Instructions Recorded Confirmed Citalopram [CeleXA] 10 mg PO DAILY 04/06/18 04/24/20 Insulin Aspart (Vial) [NovoLOG 5 units SUBQ DAILY 12/12/18 04/24/20 (VIAL FOR ED USE)] Dolutegravir Sodium [Tivicay] 10 mg PO DAILY 10/12/19 04/24/20 Emtricitabine/Tenofov Alafenam 1 each PO DAILY 10/12/19 04/24/20 [Descovy 200-25 mg Tablet] Lisinopril [Prinivil] 40 mg PO DAILY 10/12/19 04/24/20 Torsemide 20 mg PO DAILY 10/12/19 04/24/20 Levemir 12 units DAILY 04/24/20 04/24/20 traMADol [Ultram] 50 - 100 mg PO Q6H PRN #20 tablet 04/24/20 - Allergies Allergies/Adverse Reactions: Allergies Allergy/AdvReac Type Severity Reaction Status Date / Time milk AdvReac Cramps Verified 04/24/20 14:56 - Social History Does the pt smoke?: Yes Smoking Status: Current every day smoker Does the pt drink ETOH?: No Does the pt have substance abuse?: No - Immunizations Immunizations are current?: Yes PD ED PE NORMAL - Vitals Vital signs reviewed: Yes (normal ) - General General: Alert and oriented X 3, Well developed/nourished, Other (29 y/o M appears older than his stated age is dishoveled and unkempt ) - HEENT HEENT: Atraumatic, PERRL, EOMI - Neck Neck: Supple, no meningeal sign - Cardiac Cardiac: RRR, No murmur - Respiratory Respiratory: No respiratory distress, Clear bilaterally - Abdomen Abdomen: Normal bowel sounds, Soft, Non tender, Non distended, No organomegaly - Male Male : Other (scrotal and penile swelling ) - Back Back: No CVA TTP, No spinal TTP - Derm Derm: Normal color, Warm and dry - Extremities Extremities: Other (There is 4+ pitting edema to the lower ext bilat. There is swelling to above the knee bilaterally. The knee exam shows a fair ROM and no ligamentous laxity with the exception of opening of the medial joint line with valgus forces. This is present symetrically bilat. 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, No motor deficit, No sensory deficit, Normal speech Eye Opening: Spontaneous Motor: Obeys Commands Verbal: Oriented GCS Score: 15 - Psych Psych: Normal mood, Normal affect Results - Vitals Vitals: Vital Signs - 24 hr 04/24/20 14:35 Temperature 37 C Heart Rate 90 Respiratory 16 Rate Blood Pressure 93/61 O2 Saturation 100 Oxygen O2 Source Room air - Labs Labs: Laboratory Tests 04/24/20 04/24/20 04/24/20 15:32 15:32 15:32 WBC 22.6 H RBC 3.88 L Hgb 9.8 L Hct 31.2 L MCV 80.4 MCH 25.3 L MCHC 31.4 L RDW 16.4 H Plt Count 172 MPV 9.8 Neut # (Auto) 21.0 H Lymph # (Auto) 0.4 L [facility] # (Auto) 0.5 Eos # (Auto) 0.1 Baso # (Auto) 0.1 Absolute Nucleated RBC 0.00 Band Neuts % (Manual) Not Reportable Abnorm Lymph % (Manual) Not Reportable Nucleated RBC % 0.0 Neutrophils # (Manual) Not Reportable Lymphocytes # (Manual) Not Reportable Monocytes # (Manual) Not Reportable Eosinophils # (Manual) Not Reportable Basophils # (Manual) Not Reportable Differential Comment MANUAL=AUTO DIFF Manual Slide Review Indicated Platelet Estimate NORMAL (130-450,000) Platelet Morphology NORMAL DIANA RBC Morph Micro Appear 1+ HYPOCHROMASIA VBG pH VBG pCO2 VBG pO2 VBG HCO3 VBG Total CO2 VBG O2 Saturation VBG Base Excess Sodium 131 L Potassium 4.3 Chloride 107 Carbon Dioxide 11 L* Anion Gap 13.0 BUN 87 H* Creatinine 5.6 H Estimated GFR (MDRD) 12 L Glucose 154 H Lactic Acid 0.7 Calcium 8.2 L Total Bilirubin 0.4 AST 15 ALT 23 Alkaline Phosphatase 178 H Total Protein 5.0 L Albumin 1.1 L Globulin 3.9 Albumin/Globulin Ratio 0.3 L Lipase 304 H Serum Ketones 04/24/20 04/24/20 15:32 17:02 WBC RBC Hgb Hct MCV MCH MCHC RDW Plt Count MPV Neut # (Auto) Lymph # (Auto) [facility] # (Auto) Eos # (Auto) Baso # (Auto) Absolute Nucleated RBC Band Neuts % (Manual) Abnorm Lymph % (Manual) Nucleated RBC % Neutrophils # (Manual) Lymphocytes # (Manual) Monocytes # (Manual) Eosinophils # (Manual) Basophils # (Manual) Differential Comment Manual Slide Review Platelet Estimate Platelet Morphology RBC Morph Micro Appear VBG pH 7.143 L VBG pCO2 29.1 L VBG pO2 102.0 H VBG HCO3 10.0 L VBG Total CO2 11.0 L VBG O2 Saturation 96.0 H VBG Base Excess -19.0 L Sodium Potassium Chloride Carbon Dioxide Anion Gap BUN Creatinine Estimated GFR (MDRD) Glucose Lactic Acid Calcium Total Bilirubin AST ALT Alkaline Phosphatase Total Protein Albumin Globulin Albumin/Globulin Ratio Lipase Serum Ketones NEGATIVE PD MEDICAL DECISION MAKING - ED course Complexity details: reviewed old records, reviewed results, re-evaluated patient, considered differential, d/w patient ED course: 29-year-old diabetic male with HIV and nephrotic syndrome comes into the emergency department with a chief complaint of left knee pain and wanting some type of pain medication to help him be able to walk. He has chronic problems with his diabetes and nephrotic syndrome and he does not want to go to another hospital does not feel that he needs to be hospitalized and he is grateful for the tramadol which did help with his pain. He has taken hydrocodone and oxycodone previously which makes him vomit. He did take some of his father-in- law's pain medication last night and this did not work that well. Today we have given him a dose of tramadol and this seems to have helped. I have indicated the patient that his kidney function is deteriorating and is as bad as it has been I have asked him to stop taking the ibuprofen. His diabetes appears managed. His volume was managed. Departure - Departure Disposition: 01 Home, Self Care Clinical Impression: Metabolic acidosis, Nephrotic syndrome Sprain of left knee Qualifiers: Encounter type: initial encounter Involved ligament of knee: unspecified ligament Qualified Code(s): S83.92XA - Sprain of unspecified site of left knee, initial encounter Condition: Stable Instructions: ED Sprain Knee, ED Renal Failure Chronic, ED Proteinuria Follow-Up: Tu Magana MD [Provider Admit Priv/Credential] - Prescriptions: traMADol [Ultram] 50 - 100 mg PO Q6H PRN #20 tablet PRN Reason: Pain Comments: Today your kidney function appears worse than usual and this may be due to the use of ibuprofen. My recommendation is to stop using the ibuprofen now and alternatively use the tramadol as needed for pain control. The tramadol will work better with Tylenol given at the same time. Tylenol is metabolized by the liver and should not affect your kidneys. Follow up with Dr. Magana by phone tomorrow so that he is aware of your decreased kidney function.
[2020-04-24 16:19] LABS: PLATELET ESTIMATE, MANUAL NORMAL (130-450,000) (NORMAL); PLATELET MORPHOLOGY NORMAL APP (NORMAL)
[2020-04-24 16:20] LABS: DIFFERENTIAL COMMENT MANUAL=AUTO DIFF
[2020-04-24 17:12] LABS: VBG PH 7.143 (7.31-7.41)
[2020-04-24 17:13] LABS: VBG PCO2 29.1 mmHg (41-51)
[2020-04-24 18:26] VITALS: BP 136/56
== END 2020-04-24 18:30 | disposition home or self-care (01) ==
LOC: EDUNIT# → ED 14:31
DX: S83.92XA Sprain of unspecified site of left knee, initial encounter (principal); W54.1XXA Struck by dog, initial encounter; X50.1XXA Overexertion from prolonged static or awkward postures, initial encounter; Y92.009 Unspecified place in unspecified non-institutional (private) residence as the place of occurrence of the external cause; E87.2 Acidosis; E10.21 Type 1 diabetes mellitus with diabetic nephropathy; B20 Human immunodeficiency virus [HIV] disease; I10 Essential (primary) hypertension; F17.200 Nicotine dependence, unspecified, uncomplicated
CPT/HCPCS: 36415; 80053; 82009; 82803; 83605; 83690; 85025; 87040; 99283; 99284; A9270

== ENCOUNTER 2020-04-26 09:59 | Outpatient (CLI) | payer MEDICAID | END 2020-04-26 10:00 | disposition critical access hospital (66) | LOC: EMS 09:59 | PROVIDERS: ATTEND Surgery | DX: R10.9 Unspecified abdominal pain (principal); M25.562 Pain in left knee; M25.462 Effusion, left knee | CPT/HCPCS: A0425; A0429; A0999 ==

== ENCOUNTER 2020-04-26 11:16 | Emergency (ER) | payer MEDICAID ==
--- NOTE | 2020-04-26 11:40 | ED Physician Documentation ---
PD HPI ABD PAIN - Stated complaint Stated Complaint: ABD PX - Chief complaint Chief Complaint: Abd Pain - History obtained from History obtained from: Patient, EMS - History of Present Illness Timing - onset: How many days ago (several) Timing - duration: Days (several) Timing - details: Gradual onset (He was seen here 2 days ago with complaints of pain in his knee and was noted to have leg edema. He was awake alert and conversant. There was some lab test abnormalities but he was discharged with tramadol for his knee pain. The patient states he has been very sleepy, weak, worse edema.), Still present Quality: Cramping (mid to upper abdomen for 1-2 days, he is not sure exactly when it started, but since prior ED visit 2 days ago.) Location: Epigastric Associated symptoms: No: Fever, Vomiting, Diarrhea Recently seen: Emergency Dept (2 days ago for leg edema and knee pain) Review of Systems Unable to obtain: AMS (somnolent, so very minimal responses after tactile stimulus) Constitutional: denies: Fever GI: reports: Abdominal Pain. denies: Vomiting, Diarrhea Musculoskeletal: reports: Back pain, Extremity pain (left knee) Neurologic: reports: Generalized weakness. denies: Headache PD PAST MEDICAL HISTORY - Past Medical History Past Medical History: Yes Cardiovascular: Hypertension Neuro: Tremors Endocrine/Autoimmune: Type 1 diabetes GI: None : Renal insuffiency (with [employer]ician APURVA Magana at [place]) HEENT: Chronic vision loss Psych: Depression Musculoskeletal: None Derm: Herpes zoster Other Past Medical History: HIV - ID specialist at ?. - Past Surgical History Past Surgical History: Yes HEENT: Myringotomy (tubes) - Present Medications Home Medications: Ambulatory Orders Medication Instructions Recorded Confirmed Citalopram [CeleXA] 10 mg PO DAILY 04/06/18 04/24/20 Insulin Aspart (Vial) [NovoLOG 5 units SUBQ DAILY 12/12/18 04/24/20 (VIAL FOR ED USE)] Dolutegravir Sodium [Tivicay] 10 mg PO DAILY 10/12/19 04/24/20 Emtricitabine/Tenofov Alafenam 1 each PO DAILY 10/12/19 04/24/20 [Descovy 200-25 mg Tablet] Lisinopril [Prinivil] 40 mg PO DAILY 10/12/19 04/24/20 Torsemide 20 mg PO DAILY 10/12/19 04/24/20 Levemir 12 units DAILY 04/24/20 04/24/20 traMADol [Ultram] 50 - 100 mg PO Q6H PRN #20 tablet 04/24/20 - Allergies Allergies/Adverse Reactions: Allergies Allergy/AdvReac Type Severity Reaction Status Date / Time milk AdvReac Cramps Verified 04/26/20 11:26 - Social History Does the pt smoke?: Yes Smoking Status: Current every day smoker Does the pt drink ETOH?: No Does the pt have substance abuse?: No - Immunizations Immunizations are current?: Yes - POLST Patient has POLST: No PD ED PE NORMAL - Vitals Vital signs reviewed: Yes (oxygenation good; seems to have adequate resp effort.) - General General: Other (very somnolent, but rousable to verbal and tactile. Respiratory effort seems okay. ). No: Well developed/nourished (seems undernourished) - HEENT HEENT: No: Moist mucous membranes - Neck Neck: Supple, no meningeal sign, No adenopathy - Cardiac Cardiac: RRR, No murmur - Respiratory Respiratory: No: Clear bilaterally (decreased sounds on right with some crackles. No wheezing noted. ) - Abdomen Abdomen: Soft, Non distended, Other (tender in upper abd/epigastric with mild guarding. Lower abd not tender. Decreased bowel sounds diffusely. ) - Male Male : Deferred - Rectal Rectal: Deferred - Derm Derm: Warm and dry. No: Normal color (pale) - Extremities Extremities: No calf tenderness / cord, Other (3+ edema in both lower legs up to the knees. No redness nor warmth. Knee with some old scars. No notable effusion, warmth nor redness. ) - Neuro Neuro: No motor deficit. No: Alert and oriented X 3 (somnolent and oriented to person. ) Eye Opening: To Voice Motor: Obeys Commands Verbal: Confused GCS Score: 13 Results - Vitals Vitals: Vital Signs - 24 hr 04/26/20 04/26/20 04/26/20 11:18 12:13 13:55 Temperature 35.9 C L Heart Rate 96 96 91 Respiratory 18 19 18 Rate Blood Pressure 117/81 H 104/61 108/66 O2 Saturation 92 95 95 04/26/20 04/26/20 04/26/20 14:16 14:30 14:45 Temperature 33.8 C L 33.6 C L 33.7 C L Heart Rate 90 90 Respiratory 17 12 Rate Blood Pressure 80/49 L 81/50 L O2 Saturation 94 95 04/26/20 04/26/20 15:00 15:15 Temperature 33.9 C L 34.1 C L Heart Rate 88 Respiratory 18 Rate Blood Pressure 90/49 L O2 Saturation 94 Oxygen O2 Source Room air - EKG (time done) 12:33 Rate: Rate (enter#) (96) Rhythm: NSR [place]: Normal Intervals: Normal MO. No: Wide QRS QRS: Normal Ischemia: Normal ST segments. No: ST elevation c/w ischemia, ST depression Compare to prior EKG: Old EKG unavailable - Labs Labs: Laboratory Tests 04/26/20 04/26/20 04/26/20 12:07 12:07 12:07 WBC 22.9 H RBC 3.90 L Hgb 9.8 L Hct 31.5 L MCV 80.8 MCH 25.1 L MCHC 31.1 L RDW 16.8 H Plt Count 162 MPV 9.6 Neut # (Auto) Not Reportable Lymph # (Auto) Not Reportable [place] # (Auto) Not Reportable Eos # (Auto) Not Reportable Baso # (Auto) Not Reportable Absolute Nucleated RBC Not Reportable Total Counted 100 Band Neuts % (Manual) 29 H Abnorm Lymph % (Manual) 0 Nucleated RBC % Not Reportable Neutrophils # (Manual) 22.7 H Lymphocytes # (Manual) 0.2 L Monocytes # (Manual) 0.0 Eosinophils # (Manual) 0.0 Basophils # (Manual) 0.0 Differential Comment MANUAL DIFFERENTIAL WBC Morphology 1+ TOXIC GRANULATION Platelet Estimate NORMAL (130-450,000) Platelet Morphology NORMAL APPEARANCE RBC Morph Micro Appear 1+ OVALOCYTES VBG pH 7.041 L VBG pCO2 35.3 L VBG pO2 63.0 H VBG HCO3 9.4 L VBG Total CO2 10.4 L VBG O2 Saturation 89.1 H VBG Base Excess -20.1 L Sodium 131 L Potassium 4.9 Chloride 109 Carbon Dioxide 10 L* Anion Gap 12.0 BUN 102 H* Creatinine 6.2 H Estimated GFR (MDRD) 11 L Glucose 113 H Lactic Acid Calcium 7.7 L Phosphorus 8.4 H Magnesium 1.9 Total Bilirubin 0.4 AST 21 ALT 27 Alkaline Phosphatase 170 H Ammonia Total Protein 4.9 L Albumin 1.1 L Globulin 3.8 Albumin/Globulin Ratio 0.3 L Urine Color Urine Clarity Urine pH Ur Specific [place] Urine Protein Urine Glucose (UA) Urine Ketones Urine Occult Blood Urine Nitrite Urine Bilirubin Urine Urobilinogen Ur Leukocyte Esterase Urine RBC Urine WBC Ur Squamous Epith Cells Amorphous Sediment Urine Bacteria Ur Microscopic Review Urine Culture Comments Nasal Adenovirus (PCR) Nasal B. parapertussis DNA (PCR) Nasal Coronavir 229E PCR Nasal Coronavir HKU1 PCR Nasal Coronavir NL63 PCR Nasal Coronavir OC43 PCR Nasal Enterovir/Rhinovir PCR Nasal Influenza B PCR Nasal Influenza A PCR Nasal Parainfluen 1 PCR Nasal Parainfluen 2 PCR Nasal Parainfluen 3 PCR Nasal Parainfluen 4 PCR Nasal RSV (PCR) Nasal B.pertussis DNA PCR Nasal C.pneumoniae (PCR) Nav Human Metapneumo PCR Nasal M.pneumoniae (PCR) Nasal SARS-CoV-2 (PCR) Urine Opiates Screen Ur Oxycodone Screen Urine Methadone Screen Ur Propoxyphene Screen Ur Barbiturates Screen Ur Tricyclics Screen Ur Phencyclidine Scrn Ur Amphetamine Screen U Methamphetamines Scrn U Benzodiazepines Scrn Urine Cocaine Screen U Cannabinoids Screen Ethyl Alcohol < 5.0 Serum Ketones SMALL H 04/26/20 04/26/20 04/26/20 12:07 12:48 12:48 WBC RBC Hgb Hct MCV MCH MCHC RDW Plt Count MPV Neut # (Auto) Lymph # (Auto) [place] # (Auto) Eos # (Auto) Baso # (Auto) Absolute Nucleated RBC Total Counted Band Neuts % (Manual) Abnorm Lymph % (Manual) Nucleated RBC % Neutrophils # (Manual) Lymphocytes # (Manual) Monocytes # (Manual) Eosinophils # (Manual) Basophils # (Manual) Differential Comment WBC Morphology Platelet Estimate Platelet Morphology RBC Morph Micro Appear VBG pH VBG pCO2 VBG pO2 VBG HCO3 VBG Total CO2 VBG O2 Saturation VBG Base Excess Sodium Potassium Chloride Carbon Dioxide Anion Gap BUN Creatinine Estimated GFR (MDRD) Glucose Lactic Acid Calcium Phosphorus Magnesium Total Bilirubin AST ALT Alkaline Phosphatase Ammonia 42.9 H Total Protein Albumin Globulin Albumin/Globulin Ratio Urine Color YELLOW Urine Clarity CLOUDY Urine pH 5.0 Ur Specific [place] 1.025 Urine Protein 100 H Urine Glucose (UA) 100 H Urine Ketones NEGATIVE Urine Occult Blood TRACE-INTA Urine Nitrite NEGATIVE Urine Bilirubin NEGATIVE Urine Urobilinogen 0.2 (NORMAL) Ur Leukocyte Esterase NEGATIVE Urine RBC 0-5 Urine WBC 0-3 Ur Squamous Epith Cells FEW Squamous Amorphous Sediment Marked Urine Bacteria Moderate H Ur Microscopic Review INDICATED Urine Culture Comments INDICATED Nasal Adenovirus (PCR) Nasal B. parapertussis DNA (PCR) Nasal Coronavir 229E PCR Nasal Coronavir HKU1 PCR Nasal Coronavir NL63 PCR Nasal Coronavir OC43 PCR Nasal Enterovir/Rhinovir PCR Nasal Influenza B PCR Nasal Influenza A PCR Nasal Parainfluen 1 PCR Nasal Parainfluen 2 PCR Nasal Parainfluen 3 PCR Nasal Parainfluen 4 PCR Nasal RSV (PCR) Nasal B.pertussis DNA PCR Nasal C.pneumoniae (PCR) Nav Human Metapneumo PCR Nasal M.pneumoniae (PCR) Nasal SARS-CoV-2 (PCR) Urine Opiates Screen POSITIVE H Ur Oxycodone Screen POSITIVE H Urine Methadone Screen NEGATIVE Ur Propoxyphene Screen NEGATIVE Ur Barbiturates Screen NEGATIVE Ur Tricyclics Screen NEGATIVE Ur Phencyclidine Scrn NEGATIVE Ur Amphetamine Screen NEGATIVE U Methamphetamines Scrn NEGATIVE U Benzodiazepines Scrn NEGATIVE Urine Cocaine Screen NEGATIVE U Cannabinoids Screen NEGATIVE Ethyl Alcohol Serum Ketones 04/26/20 04/26/20 12:48 13:01 WBC RBC Hgb Hct MCV MCH MCHC RDW Plt Count MPV Neut # (Auto) Lymph # (Auto) [place] # (Auto) Eos # (Auto) Baso # (Auto) Absolute Nucleated RBC Total Counted Band Neuts % (Manual) Abnorm Lymph % (Manual) Nucleated RBC % Neutrophils # (Manual) Lymphocytes # (Manual) Monocytes # (Manual) Eosinophils # (Manual) Basophils # (Manual) Differential Comment WBC Morphology Platelet Estimate Platelet Morphology RBC Morph Micro Appear VBG pH VBG pCO2 VBG pO2 VBG HCO3 VBG Total CO2 VBG O2 Saturation VBG Base Excess Sodium Potassium Chloride Carbon Dioxide Anion Gap BUN Creatinine Estimated GFR (MDRD) Glucose Lactic Acid 0.7 Calcium Phosphorus Magnesium Total Bilirubin AST ALT Alkaline Phosphatase Ammonia Total Protein Albumin Globulin Albumin/Globulin Ratio Urine Color Urine Clarity Urine pH Ur Specific [place] Urine Protein Urine Glucose (UA) Urine Ketones Urine Occult Blood Urine Nitrite Urine Bilirubin Urine Urobilinogen Ur Leukocyte Esterase Urine RBC Urine WBC Ur Squamous Epith Cells Amorphous Sediment Urine Bacteria Ur Microscopic Review Urine Culture Comments Nasal Adenovirus (PCR) NOT DETECTED Nasal B. parapertussis DNA (PCR) NOT DETECTED Nasal Coronavir 229E PCR NOT DETECTED Nasal Coronavir HKU1 PCR NOT DETECTED Nasal Coronavir NL63 PCR NOT DETECTED Nasal Coronavir OC43 PCR NOT DETECTED Nasal Enterovir/Rhinovir PCR NOT DETECTED Nasal Influenza B PCR NOT DETECTED Nasal Influenza A PCR NOT DETECTED Nasal Parainfluen 1 PCR NOT DETECTED Nasal Parainfluen 2 PCR NOT DETECTED Nasal Parainfluen 3 PCR NOT DETECTED Nasal Parainfluen 4 PCR NOT DETECTED Nasal RSV (PCR) NOT DETECTED Nasal B.pertussis DNA PCR NOT DETECTED Nasal C.pneumoniae (PCR) NOT DETECTED Nav Human Metapneumo PCR NOT DETECTED Nasal M.pneumoniae (PCR) NOT DETECTED Nasal SARS-CoV-2 (PCR) NOT DETECTED Urine Opiates Screen Ur Oxycodone Screen Urine Methadone Screen Ur Propoxyphene Screen Ur Barbiturates Screen Ur Tricyclics Screen Ur Phencyclidine Scrn Ur Amphetamine Screen U Methamphetamines Scrn U Benzodiazepines Scrn Urine Cocaine Screen U Cannabinoids Screen Ethyl Alcohol Serum Ketones - Rads (name of study) chest xray Radiology: Prelim report reviewed, EMP read contemporaneously (significant infiltrate whole of right lung. Small effusion. ), See rad report abd CT Radiology: Prelim report reviewed, See rad report PD MEDICAL DECISION MAKING - ED course Complexity details: reviewed results (Blood gas showing acidosis. Small ketones on blood testing. Blood sugar is okay however. Consider euglycemic DKA as a possibility. Also general illness with apparent pneumonia.), re-evaluated patient, considered differential (Appears significantly ill with decreased mentation. Has some upper abdominal pain and tenderness. We can get a CT of that. History of diabetes with recent lab abnormality. Will recheck lab tests including blood gas ketones electrolytes and blood count.), d/w patient ED course: Patient is somnolent but arousable and appears to have adequate ventilation by blood gas. Oxygenation is good. Heart rate is regular. EKG does not show any QRS widening or conduction abnormality. He does have acute on chronic renal failure with a rising creatinine. Potassium and magnesium are normal. He does have increasing edema and ascites. Chest x-ray shows unilateral diffuse infiltrate that could be consistent with pulmonary edema though more concerning for multifocal pneumonia. Initially covering with cefepime and azithromycin. Given history of HIV, might also consider Bactrim but can discuss with accepting physicians. He is acidotic with small ketones on serum testing. However blood sugar is 89. We can give dextrose infusion if needed. Is acutely critically ill and in particular needing nephrology and likely dialysis. As such she is not a candidate for our facility. 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 With the hospitalist Dr. Morton who asked that I talk with the co pilot Dr. Lo on any as well. I did review with both of the patient's current condition and labs and findings. With I conveyed the blood pressure was starting to soften and was now 90 systolic. We were given a little bit of a fluid bolus. The discussed in the background between themselves and the patient is going to be accepted by the hospitalist on apparently stepdown unit. The patient's blood pressure remained just mildly hypotensive around 90 systolic. Oxygenation and respiratory effort remained normal. His temperature did decrease while here and was 33. He had had blankets on but is now given a bear hugger. His mentation remains the same with arousable to tactile stimuli with somnolence and orientation to person. Repeat blood sugar was 119. The patient is having multiple problems and are basic would be ambulance was deferring transfer to [facility] if by ground. This would likely take several hours. As such the patient does seem critical enough to warrant expedited transfer by air helicopter. - Critical Care Time(min): 55 Time Includes: Direct patient care, Reassess patient, Coordinate care, Medical consult, See progress note Data interpretation: Labs, Pulse ox, ABG, CXR, See progress note Procedures excluded from critical care time: EKG Departure - Departure Disposition: 02 Transfer Acute Care Hosp Clinical Impression: Generalized edema Pneumonia Qualifiers: Pneumonia type: due to unspecified organism Laterality: right Lung location: unspecified part of lung Qualified Code(s): J18.9 - Pneumonia, unspecified or ganism Acute on chronic renal failure Qualifiers: Acute renal failure type: unspecified Chronic kidney disease stage: unspecified stage Qualified Code(s): N17.9 - Acute kidney failure, unspecified Diabetes Qualifiers: Diabetes mellitus type: type 1 Diabetes mellitus complication status: with kidney complications Diabetes mellitus complication detail: with other kidney complication Qualified Code(s): E10.29 - Type 1 diabetes mellitus with other diabetic kidney complication Altered mental status Qualifiers: Altered mental status type: somnolence Qualified Code(s): R40.0 - Somnolence HIV (human immunodeficiency virus infection) Qualifiers: HIV symptom status: unspecified Qualified Code(s): B20 - Human immunodeficiency virus [HIV] disease Condition: Poor Record reviewed to determine appropriate education?: Yes
[2020-04-26] MEDS ORDERED: SODIUM CHLORIDE 0.9% 1,000 ML IV STA (12:04)
[2020-04-26 12:22] LABS: VBG BASE EXCESS -20.1 mmol/L (-2 - +2); VBG PCO2 35.3 mmHg (41-51); VBG PH 7.041 (7.31-7.41); VBG TOTAL CO2 10.4 mmol/L (24-29)
[2020-04-26 12:27] LABS: BASOPHILS % (AUTO) 0.8 %; EOSINOPHILS % (AUTO) 0.1 %; HGB - HEMOGLOBIN 9.8 g/dL (14.0-18.0); LYMPHOCYTES % (AUTO) 2.1 %; MEAN CORPUSCULAR HEMOGLOBIN 25.1 pg (27.0-31.0); MEAN CORPUSCULAR HGB CONC 31.1 g/dL (32.0-36.0); MEAN CORPUSCULAR VOLUME 80.8 fL (80.0-94.0); MEAN PLATELET VOLUME 9.6 fL (7.4-11.4); MONOCYTES % (AUTO) 1.8 %; NEUTROPHILS % (AUTO) 92.6 %; PLT - PLATELET COUNT 162 10^3/uL (130-450); RED CELL DISTRIBUTION WIDTH 16.8 % (12.0-15.0); WHITE BLOOD COUNT 22.9 x10^3/uL (4.8-10.8)
[2020-04-26] MEDS ORDERED: CEFEPIME 2 GM in SODIUM CHLORIDE 0.9% MINIBAG 100 ML IV STA (12:34)
[2020-04-26] MEDS ORDERED: AZITHROMYCIN INJ 500 MG in SODIUM CHLORIDE 0.9% 250 ML IV STA (12:34)
[2020-04-26 12:35] LABS: KETONES, SERUM (ACETEST) SMALL (NEGATIVE)
[2020-04-26 12:37] LABS: ABNORMAL LYMPHS % (MANUAL) 0 %
--- NOTE | 2020-04-26 12:49 | XRAY Report ---
PROCEDURE: Chest 1 View X-Ray INDICATIONS: chest pain TECHNIQUE: One view of the chest was acquired. COMPARISON: 12/12/2018 FINDINGS: Overlying EKG wires. Surgical changes and devices: None. Lungs and pleura: There is diffuse opacity throughout the right lung as well as at the left lung base . No pneumothorax. Small right-sided pleural effusion. Mediastinum: Mediastinal contours appear normal. Heart size is normal. Bones and chest wall: No suspicious bony lesions. Overlying soft tissues appear unremarkable. IMPRESSION: Diffuse opacity throughout the right lung as well as the left lung base concerning for multifocal pne umonia. Small right-sided pleural effusion. Reviewed by: Michael Kamara DO on 04/26/2020 11:48 AM [facility] Approved by: Michael Kamara DO on 04/26/2020 11:[address] [facility] Station ID: [id number]
[2020-04-26 12:56] LABS: MUDS CUTOFF CONCENTRATIONS CUTOFF CONC BELOW:
[2020-04-26 13:04] LABS: ALBUMIN 1.1 g/dL (3.2-5.5); ALBUMIN/GLOBULIN RATIO 0.3 (1.0-2.2); ALKALINE PHOSPHATASE 170 IU/L (42-121); ALT ALANINE AMINOTRANSFERASE 27 IU/L (10-60); AST ASPARTATE AMINOTRANSFERASE 21 IU/L (10-42); BILIRUBIN,TOTAL 0.4 mg/dL (0.2-1.0); CALCIUM 7.7 mg/dL (8.5-10.3); CHLORIDE 109 mmol/L (101-111); CREATININE 6.2 mg/dL (0.6-1.2); GLUCOSE 113 mg/dL (70-100); MAGNESIUM 1.9 mg/dL (1.7-2.8); PHOSPHORUS 8.4 mg/dL (2.5-4.6); TOTAL PROTEIN 4.9 g/dL (6.7-8.2)
[2020-04-26 13:05] LABS: BUN - BLOOD UREA NITROGEN 102 mg/dL (6-20); CARBON DIOXIDE - CO2 10 mmol/L (21-32)
--- NOTE | 2020-04-26 13:11 | CT Report ---
PROCEDURE: Abdomen/Pelvis WO INDICATIONS: upper abd pain TECHNIQUE: Noncontrast 5 mm thick sections acquired from the diaphragms to the symphysis. 5 mm coronal and sagi ttal reformats were then performed. For radiation dose reduction, the following was used: automated exposure control, adjustment of mA and/or kV according to patient size. COMPARISON: None. FINDINGS: Image quality: Excellent. ABDOMEN: Lung bases: There is a small right-sided pleural effusion with adjacent atelectasis. Additional groun dglass opacities are noted throughout the imaged right lung as well as the left lung base. Solid organs: Liver is normal in size. Reducing noted cystic lesions and areas of enhancement are bet ter depicted on comparison exam. Unchanged lobular appearance of the spleen.. Gallbladder is grossly unremarkable Pancreas is normal in contours. Unchanged appearance of atrophic nonfunctioning left k idney. Laying flat appearance of the right adrenal gland. The right kidney is somewhat enlarged appea rfaael with an exophytic region along the posterior aspect of the right kidney measuring slightly grea ter than simple free fluid. There is questionable mild hydronephrosis. Ureter is difficult to follow. Peritoneum and bowel: Unenhanced bowel loops demonstrate normal wall thickness and caliber. There is moderate diffuse ascites most prominent along the perihepatic region. Bladder is markedly distended. Nodes and vessels: No retroperitoneal or mesenteric adenopathy by size criteria. Aorta and inferior vena cava are normal in caliber. Miscellaneous: No ventral hernias. PELVIS: Genitourinary: Bladder wall thickness is normal. Miscellaneous: There is diffuse soft tissue anasarca. Bones: No suspicious bony lesions. Osseous structures are appropriate for patient's age. No vertebr al body compression fractures. IMPRESSION: Moderate ascites with diffuse soft tissue anasarca and small right-sided pleural effusion suggestive of fluid overload. This may be due to renal insufficiency and findings. Groundglass opacities at the lung bases may represent pulmonary edema given their findings. Infectiou s or inflammatory etiologies are not excluded, specifically given the unilateral pleural effusion. Questionable mild hydronephrosis with suggestion of an exophytic lesion along the posterior aspect of the kidney measuring greater than simple free fluid. Consider initial evaluation with ultrasound giv en renal insufficiency. Recommend correlation with UA to exclude infectious process as well. Markedly distended bladder. Reviewed by: Michael Kamara DO on 04/26/2020 12:09 PM [facility] Approved by: Michael Kamara DO on 04/26/2020 12:09 PM [facility] Station ID: [id number]
[2020-04-26] MEDS ORDERED: ALBUMIN 25% 12.5 GM/50 ML VIAL IV STA (13:15)
[2020-04-26 13:21] LABS: BILIRUBIN,URINE NEGATIVE (NEGATIVE); GLUCOSE, URINE (UA) 100 mg/dL (NEGATIVE); KETONES,URINE (UA) NEGATIVE (NEGATIVE); LEUKOCYTE ESTERASE, URINE NEGATIVE (NEGATIVE); NITRITE,URINE NEGATIVE (NEGATIVE); OCCULT BLOOD,URINE TRACE-INTA (NEGATIVE); PROTEIN,URINE 100 mg/dL (NEGATIVE); UROBILINOGEN,URINE 0.2 (NORMAL) E.U./dL (NORMAL)
[2020-04-26 13:22] LABS: CLARITY,URINE CLOUDY (CLEAR)
[2020-04-26 13:37] LABS: AMPHETAMINE SCREEN,URINE NEGATIVE (NEGATIVE); BENZODIAZEPINES SCREEN, URINE NEGATIVE (NEGATIVE); COCAINE SCREEN URINE NEGATIVE (NEGATIVE); METHADONE SCREEN, URINE NEGATIVE (NEGATIVE); METHAMPHETAMINES SCREEN, URINE NEGATIVE (NEGATIVE); OPIATE SCREEN, URINE POSITIVE (NEGATIVE); OXYCODONE SCREEN, URINE POSITIVE (NEGATIVE); PROPOXYPHENE SCREEN, URINE NEGATIVE (NEGATIVE); TRICYCLIC ANTIDEPRESSANT,URINE NEGATIVE (NEGATIVE)
[2020-04-26 13:39] LABS: AMORPHOUS SEDIMENT,UR Marked /LPF; RBC,URINE 0-5 /HPF (0-5); SQUAMOUS EPITHELIAL CELL,UR FEW Squamous (<= Few)
[2020-04-26 13:40] LABS: BACTERIA,URINE Moderate /HPF (None Seen)
[2020-04-26 13:50] LABS: BAND NEUTROPHILS % (MANUAL) 29 %; LYMPHOCYTES # (MANUAL) 0.2 10^3/uL (1.5-3.5); LYMPHOCYTES % (MANUAL) 1 %; PLATELET ESTIMATE, MANUAL NORMAL (130-450,000) (NORMAL); PLATELET MORPHOLOGY NORMAL APPEARANCE (NORMAL)
[2020-04-26 13:51] LABS: DIFFERENTIAL COMMENT MANUAL DIFFERENTIAL
[2020-04-26 14:08] LABS: C. PNEUMONIAE- RESP PCR PANEL NOT DETECTED
[2020-04-26] MEDS ORDERED: SODIUM CHLORIDE 0.9% 500 ML IV STA ×2 (14:16→15:16)
[2020-04-26 15:39] VITALS: BP 90/49
== END 2020-04-26 16:38 | disposition short-term general hospital (02) ==
LOC: EDUNIT# → ED 11:16
DX: J18.9 Pneumonia, unspecified organism (principal); N17.9 Acute kidney failure, unspecified; E10.22 Type 1 diabetes mellitus with diabetic chronic kidney disease; I12.9 Hypertensive chronic kidney disease with stage 1 through stage 4 chronic kidney disease, or unspecified chronic kidney disease; N18.9 Chronic kidney disease, unspecified; E10.10 Type 1 diabetes mellitus with ketoacidosis without coma; R40.0 Somnolence; R60.1 Generalized edema; B20 Human immunodeficiency virus [HIV] disease; F17.200 Nicotine dependence, unspecified, uncomplicated; Z20.822 Contact with and (suspected) exposure to COVID-19
CPT/HCPCS: 0202U; 36415; 51702; 71045; 74176; 80053; 80306; 80320; 81001; 82009; 82140; 82803; 83605; 83735; 84100; 85025; 87086; 93005; 96365; 96366; 96368; 99285; 99291; P9047; 81003